=== PATIENT | male | born 1955 | race Caucasian/White ===

== ENCOUNTER 2024-05-05 13:07 | Inpatient (IN) ==
[2024-05-05] MEDS: SODIUM CHLORIDE 0.9% 1,000 ML IV ONE ×3 (13:46→18:07)
[2024-05-05 14:01] LABS: Hematocrit (blood only) 38.7 % (42.0-52.0); Hemoglobin 13.3 g/dl (14.0-18.0); Mean Corpuscular Hemoglobin 31.4 pg (25.0-34.0); Mean Corpuscular Hgb Conc 34.4 g/dL (32.0-36.0); Mean Corpuscular Volume 91.3 fL (80.0-100.0); Mean Platelet Volume 10.6 fL (9.4-12.4); Platelet Count 251 K/uL (130-400); RDW Coefficient of Variation 13.2 % (11.5-14.5); RDW Standard Deviation 43.8 fL (36.4-46.3); Red Blood Count 4.24 M/uL (4.70-6.10); White Blood Count 27.39 K/ul (4.8-10.8)
[2024-05-05 14:07] LABS: Appearance Urine Clear (Clear); Bacteria Urine Automated None Seen (None Seen); Bilirubin Urine Negative (Negative); Blood Urine Negative (Negative); Cast Urine Automated 0-2 /lpf (0-2); Color Urine Yellow; Epithelial Cell Urine Auto 0-2 /hpf (0-2); Glucose Urine UA Negative (Negative); Ketones Urine Negative (Negative); Leukocyte Esterase Urine Negative (Negative); Nitrite Urine Negative (Negative); Protein Urine 2+ (Negative); RBC Urine Automated 0-2 /hpf (0-2); Specific Gravity Urine 1.007 (1.000-1.030); Urobilinogen Urine Negative (Negative); WBC Urine Automated 0-5 /hpf (0-5); pH Urine 7.5 (4.5-7.5)
[2024-05-05] MEDS: cefTRIAXone SODIUM 2,000 MG/50 ML BAG IV STA (14:10)
[2024-05-05 14:18] LABS: Albumin Level 3.6 gm/dl (3.4-5.0); BUN Creatinine Ratio 14.7 (10-20); Bilirubin,Total 0.8 mg/dl (0.2-1.0); Calcium 9.4 mg/dl (8.6-10.3); Creatinine Clr Calc Pharmacy 62.1 ml/min; Globulin 3.6 gm/dl (2.5-4.0); Potassium 3.9 mmol/L (3.5-5.1); Total Protein 7.2 gm/dl (6.0-8.3)
[2024-05-05 14:22] LABS: Basophils # (auto) 0.09 K/uL (0.00-0.20); Basophils % (auto) 0.3 %; Eosinophils # (auto) 0.11 K/uL (0.00-0.50); Eosinophils % (auto) 0.4 %; Immature Granulocytes # (auto) 0.21 K/uL (0.01-0.20); Immature Granulocytes % (auto) 0.8 %; Lymphocytes # (auto) 3.21 K/uL (1.20-3.40); Lymphocytes % (auto) 11.7 %; Monocytes # (auto) 2.83 K/uL (0.11-0.59); Monocytes % (auto) 10.3 %; Neutrophils # (auto) 20.94 K/uL (1.40-6.50); Neutrophils % (auto) 76.5 %
--- NOTE | 2024-05-05 14:22 | XRay Report ---
EXAM: X-ray chest one-view portable CLINICAL HISTORY: Dyspnea PRIORS: None TECHNIQUE: Frontal view chest FINDINGS: The chest is well-expanded. No airspace consolidation, effusion or congestive changes. Heart size is top normal. No pneumothorax. Trachea is patent. Osseous structures demonstrate no acute abnormality. No radiopaque foreign body. IMPRESSION: No plain film evidence of an acute cardiopulmonary process. Electronically signed by Kayli Mo 05-05-2024 2:22 PM
[2024-05-05 14:25] LABS: Troponin I High Sensitivity 33.8 pg/ml (0-20)
[2024-05-05 14:28] LABS: Procalcitonin 0.21 ng/ml (0-0.5)
--- OUTSIDE RECORDS SUMMARY | 2024-05-05 14:30 | External Medical Summary | Summary of Care ---
Author Name Unknown Organization [facility] Address [address] [place] [address] Phone [phone] Care Team Providers Care Instructional Designer Name Role Phone Anthony Polanco MD Primary Care Provider [phone]- [phone] Reason for Visit * Reason Comments eRx-Medication Refill Encounter Details Date Type Department Care Team (Late st Contact Info) Description 12/11/2023 Refill [facility] [address] [place] [address] Anthony Polanco MD [address] [place] [address] Dyslipidemia, goal LDL below 100 Allergies No known active allergiesdocumented as of this encounter (statuses as of 12/11/2023) Medications Medication Sig Dispensed Refills Start Date End Date Status MULTIVITAMIN PO TABSIndications: Routine medical exam one pill each day 0 0 07/08/2009 Active FISH OIL 1200 MG PO CAPSIndications: Routine medical exam,Dyslipidemi a, goal LDL below 100 one pill by mouth daily 06/17/2014 Active fluticasone (FLONASE) 50 MCG/ACT nasal sprayIndications :Nonallergic rhinitis Administer 2 Sprays into each nostril daily. 48 g 3 02/26/2018 Active Misc Natural Products (GLUCOSAMINE CHOND DOUBLE STR) TABS Take by mouth. Active cetirizine (ZYRTEC) 10 MG Tablet Take 1 Tablet by mouth in the morning. Active Omeprazole 40 MG Oral Capsule Delayed Release (PriLOSEC) TAKE 1 CAPSULE BY MOUTH EVERY MORNING BEFORE BREAKFAST 90 Capsule 1 09/15/2023 Active Hyaluronic Acid 100 MG Oral Capsule Take 850 mg PE/day by mouth in the morning. Active Atorvastatin Calcium 10 MG Oral Tablet (Lipitor)Indicat ions:Dyslipidemi a, goal LDL below 100 TAKE 1 TABLET BY MOUTH EVERYDAY AT BEDTIME 90 Tablet 3 12/11/2023 Active Atorvastatin Calcium 10 MG Oral Tablet (Lipitor)Indicat ions:Dyslipidemi a, goal LDL below 100 TAKE 1 TABLET BY MOUTH EVERYDAY AT BEDTIME 90 Tablet 2 04/06/2023 4 Discontinued documented as of this encounter (statuses as of 12/11/2023) Active Problems Problem Noted Date Diagnosed Date H/O dysplastic nevus 09/20/2021 Overview: Mildly atypical nevus (L central mid back) Melanoma in situ of cheek 10/20/2020 Hx of nonmelanoma skin cancer 2019 Overview: squamous cell carcinoma (L central mid back 09/10), Renetta (central chest 04/13-Efudex), basal cell carcinoma (L scaphoid fossa-ear 11/2008) Hx of actinic keratosis 2019 Overview: actinic keratosis (Efudex 09/2019 full face, 04/2020, 01/2022, chest 05/13) 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: Lentigo Maligna (R cheek 04/09) Allergic rhinitis 08/21/2012 History of Lyme disease 11/29/2010 Dyslipidemia, goal LDL below 100 07/08/2009 documented as of this encounter (statuses as of 12/11/2023) Resolved Problems Problem Noted Date Diagnosed Date Resolved Date Family history of skin cancer 08/23/2017 12/11/2017 Personal history of skin cancer 08/23/2017 2019 Pain of left hand 07/28/2016 08/23/2017 Need for shingles vaccine 12/15/2014 Injury of toe on right foot 11/10/2014 08/23/2017 Need for hepatitis A vaccination 06/17/2014 06/26/2015 Foreign travel 12/11/2013 12/11/2017 Overweight (BMI 25.0-29.9) 05/24/2013 0 08/23/2017 Overview: bmi= 26.07 05/24/13 Screening for diabetes mellitus 05/24/2013 06/26/2015 Acute sinusitis 08/21/2012 06/26/2015 Special screening for malign ant neoplasm of prostate 06/21/2012 06/26/2015 Dyslipidemia, goal LDL below 100 07/18/2011 07/18/2011 Overweight (BMI 25.0-29.9) 06/21/2011 0 08/23/2017 Overview: BMI= 25.80 06/21/11 Lyme disease 11/30/2010 08/23/2017 Dermatitis 11/30/2010 06/26/2015 Other, multiple, and unspeci fied sites, insect bite, nonvenomous, without mention of infection(919.4) 11/30/2010 06/26/2015 OVERWEIGHT, BMI= 27.85 05/31/10 05/31/2010 08/23/2017 Myalgia and myositis 12/26/2009 016 Headache 12/26/2009 06/26/2015 Overview: ICD-10 update of inactive term Fever 12/26/2009 06/26/2015 Unspecified viral infection, in conditions classified elsewhere and of unspecified site 12/26/2009 06/26/2015 OVERWEIGHT, BMI= 27.89 07/08/09 07/08/2009 08/23/2017 Screening for prostate cancer 07/08/2009 08/23/2017 Dysfunction of eustachian tube 12/31/2007 06/02/2008 Headache 12/31/2007 06/02/2008 Overview: ICD-10 update of inactive term Acute URI 12/31/2007 06/02/2008 Acute sinusitis 12/31/2007 06/02/2008 Allergic rhinitis 12/31/2007 06/21/2012 ADVANCE DIRECTIVE INFORMATION 04/21/2006 07/28/2016 Overview: Yes, Patient instructed to provide copy of advance directive for provider to review and to be scanned into Electronic Medical Record BENIGN RADHAMES SKIN EAR 11/16/2005 06/26/19 16 Screening for prostate cancer 05/04/2005 07/30/2008 Overview: Resolved per Screening Diagnosis Protocol #6 Special screening for malign ant neoplasms, colon 05/04/2005 07/30/2008 Overview: Resolved per Screening Diagnosis Protocol #6 Need for influenza vaccination 03/25/2003 06/26/2015 SEBORRHEIC KERATOSIS, LEFT RELIGION 06/14/2002 06/26/2015 Dyslipidemia, goal to be determined 03/13/2002 07/08/2009 Need for prophylactic vaccin ation and inoculation against viral disease 03/13/20022003 Overview: ICD-10 update of inactive term ROUTINE MEDICAL EXAM 03/09/2001 016 Actinic keratosis 10/29/1998 06/26/2015 documented as of this encounter (statuses as of 12/11/2023) Immunizations Name Administration Dates Next Due COVID-19 mRNA, LNP-s, No Pre serve, 2-Dose Series (Moderna) 03/04/2022,03/30/2021,07/31/2020,07/03 HEP A - Hepatitis A (Adult > 18 yrs) 07/17/2014, 12/26/2013 Pneumococcal Conjugate Vacc, 13 Valent (Prevnar) 10/18/2019 Pneumococcal Polysaccharide PPV23 (Pneumovax) 10/20/2020 Seasonal Influenza, PF, 6 M & above, IM , (FluLaval or Fluzone) 01/30/2020,01/03/2019,02/26/2018 Seasonal Influenza, Quadriva lent Hd (Fluzone Hd) 04/07/2023,02/11/2021 Seasonal Influenza, Quadriva lent, No Preserve, IM 02/02/2017 Seasonal Influenza, Split, I IV3, With Preserve, Inj 03/05/2016,03/22/2015,02/19/2014,02/25,05/09/2012,06/21/2011,04/05/2010 ,06/02/2008,04/24/2007,04/21/2006 Seasonal Influenza, Trivalen t, Adjuvanted, 65+ yrs 03/04/2022 TD, Preservative Free 10/03/2018 TDAP, Age 7 and older, IM (Adacel) 12/31/2007 Typhoid Vaccine Oral (Vivotif) 12/30/2013 Varicella Zoster Vaccine (Adult) 12/17/2014 Zoster Vaccine Recombinant (Shingrix) 04/18/2018 ,11/01/2017 documented as of this encounter Social History Tobacco Use Types Packs/Day Years Used Date Smoking Tobacco: Never Smokeless Tobacco: Never Alcohol Use Standard Drinks/Week Comments Yes 0 (1 standard drink = 0.6 oz pure alcohol) 4-5 beers on weekend, glass of wine 3 x per week PHQ-2 Answer Date Recorded PHQ Adult Total Score 0 10/24/2022 Hunger Vital Sign Answer Date Recorded Within the past 12 months, y ou worried that your food would run out before you got the money to buy more. Never true 10/25/19 23 Within the past 12 months, t he food you bought just didn't last and you didn't have money to get more. Never true 10/24/2022 Utilities Answer Date Recorded Do you have trouble paying y our heating, water, or electric bill? (Adult - for ages 18 years and over) Not on file 11/07/2023 Is your family able to pay t he heat, water, or electric bill? (Household - for ages 0-17 years) Not on file 11/07/2023 Does your family have access to good internet? (Household - for ages 0-17 years) Not on file 11/07/2023 Social Connections Answer Date Recorded How often do you feel lonely or isolated from those around you? (Adult - for ages 18 years and over) Not on file 11/07/2023 Sex and Gender Information Value Date Recorded Sex Assigned at Male 10/03/2018 7:30 AM EDT Gender Identity Male 10/03/2018 7:30 AM EDT Sexual Orientation Straight 10/03/2018 7: 30 AM EDT Job Start Date Occupation Industry Not on file Not on file Not on file documented as of this encounter Miscellaneous Notes * Telephone Encounter - Chely Ramesh, [facility] - 12/11/2023 12:17 PM EDT Signed Prescriptions: Disp Refills Atorvastatin Calcium 10 MG Oral Tablet (Li*90 Tab*3 Sig: TAKE 1 TABLET BY MOUTH EVERYDAY AT BEDTIMEAuthorizing Provider: ANTHONY POLANCO User: CHELY RAMESH documented in this encounter Plan of Treatment Upcoming Encounters Date Type Department Care Team (Late st Contact Info) Description 03/28/2024 11:20 AM EST Office Visit Dermatology, [place] [address] [place] [address] Audelia Schulz PA-C [address] [place] [address] [place] [id number] 10/28/2024 1:20 PM EDT Office Visit [place] [address] [place] [facility] [place] [id number] Anthony Polanco MD [address], [place] [id number] Scheduled Procedures Name Priority Associated Diagnoses Date/Ti me COLONOSCOPY FLEXIBLE PROXIMA L DIAGNOSTIC Recall Encounter for screening colonoscopy Health Maintenance Due Date Last Done Comments Cologuard 09/27/1999 Fecal Occult Blood Test 09/27/1999 03/13/1997 Sigmoidoscopy 09/27/1999 COVID-19 Vaccine ( season) 2023 04/27/2023, 03/04/2022, 03/30/2021, Additional history exists Depression Screening 10/25/2023 10/24/2022, 12/16/19 15 Influenza Vaccine (FLU shot) (#1) 2024 04/07/2023, 03/04/2022, 02/11/2021, Additional history exists Colonoscopy 09/03/2025 09/04/2015, 08/20, 08/08/2005 Colorectal Cancer Screening 09/03/2025 Diabetes Screening 10/25/2026 10/26/2023, 0 10/24/2022, 10/21/2021, Additional history exists DTaP,Tdap,and Td Vaccines (3 - Td or Tdap) 10/03/2028 10/03/2018, 12/31/2007, 05/22/1994 Lipid Panel 10/25/2028 10/26/2023, 06/09/2022, 10/21/2021, Additional history exists Zoster Vaccines Completed 04/18/2018, 10/20, 12/17/2014 Pneumococcal Vaccine: 65+ Years Completed 10/20/2020, 10/18/2019 HPV (Gardasil) Vaccine Aged Out No lo nger eligible based on patient's age to complete this topic Hepatitis B Vaccine Aged Out No longe r eligible based on patient's age to complete this topic MENINGOCOCCAL (MENACTRA/MENVEO) Aged Out No longer eligible based on patient's age to complete this topic documented as of this encounter Medical Devices Not on filedocumented as of this encounter Visit Diagnoses Diagnosis Dyslipidemia, goal LDL below 100 Other and unspecified hyperlipidemia documented in this encounter Care Teams Instructional Designer Relationship Specialty Start Date End Date Anthony Polanco MD [address] [place] [address] PCP - General Family Medicine 09/06/18 documented as of this encounter
--- OUTSIDE RECORDS SUMMARY | 2024-05-05 14:30 | External Medical Summary | Summary of Care ---
Author Name Unknown Organization [facility] Address [address] [place] [address] Phone [phone] Care Team Providers Care Hog Man Name Role Phone Anthony Polanco MD Primary Care Provider +1- [phone] Reason for Visit * Reason Onset Date Comments Medication Refill 12/26/2023 Encounter Details Date Type Department Care Team (Late st Contact Info) Description 12/26/2023 Refill [facility] [address] [place] [address] Anthony Polanco MD [address] [place] [address] Allergies No known active allergiesdocumented as of this encounter (statuses as of 12/26/2023) Medications Medication Sig Dispensed Refills Start Date [...] Tablet by mouth in the morning. Active Hyaluronic Acid 100 MG Oral Capsule Take 850 mg PE/day by mouth in the morning. Active Atorvastatin Calcium 10 MG Oral Tablet (Lipitor)Indicat ions:Dyslipidemi a, goal LDL below 100 TAKE 1 TABLET BY MOUTH EVERYDAY AT BEDTIME 90 Tablet 3 12/11/2023 Active Omeprazole 40 MG Oral Capsule Delayed Release (PriLOSEC) Take 1 Capsule by mouth in the morning. 90 Capsule 3 12/26/2023 Active Omeprazole 40 MG Oral Capsule Delayed Release (PriLOSEC) TAKE 1 CAPSULE BY MOUTH EVERY MORNING BEFORE BREAKFAST 90 Capsule 1 09/15/2023 12/26/2023 Discontinue d(Refill) documented as of this encounter (statuses as of 12/26/2023) Active Problems Problem Noted Date Diagnosed Date [...] as of this encounter (statuses as of 12/26/2023) Resolved Problems Problem Noted Date Diagnosed Date [...] influenza vaccination 03/25/2003 06/26/2015 SEBORRHEIC KERATOSIS, LEFT ANABAPTISM 06/14/2002 06/26/2015 Dyslipidemia, goal to be determined 03/13/2002 07/08/2009 Need for prophylactic vaccin ation and inoculation against viral disease 03/13/20022003 Overview: ICD-10 update of inactive term ROUTINE MEDICAL EXAM 03/09/2001 016 Actinic keratosis 10/29/1998 06/26/2015 documented as of this encounter (statuses as of 12/26/2023) Immunizations Name Administration Dates Next Due COVID-19 [...] encounter Miscellaneous Notes * Telephone Encounter - Anthony Polanco MD - 12/26/2023 1:46 PM EDTSigned Prescriptions: Disp Refills Omeprazole 40 MG Oral Capsule Delayed Rele*90 Cap*3 Sig: Take 1 Capsule by mouth in the morning.Authorizing Provider: ANTHONY POLANCO * Telephone Encounter - Dale Ray OSA - 12/26/2023 1:20 PM EDT Did you pend patient's preferred pharmacy and medication before forwarding?yes Pharmacy: [facility] [id number] [place] [address] Pending Prescriptions: Disp Refills Omeprazole 40 MG Oral Capsule Delayed Rel*90 Cap*1 Sig: Take 1 Capsule by mouth in the morning. Last Visit: 10/26/2023 (in office), Visit date not found (telemedicine) Next Visit: 10/28/2024 If no future appointments scheduled, and last appointment is greater than a year ago, please schedule patient for a follow-up appointment Last date the medication was ordered: [id number] Is this request for a controlled substance?No Urine Drug Screen:No results found for this or any previous visit. Patient Phone Numbers Labs: Lab Results Component Value Date/Time CREAT 0.9 10/26/2023 02:11 PM CREAT 0.9 10/03/2019 09:26 AM POTASSIUM 4.1 10/26/2023 02:11 PM POTASSIUM 4.8 10/03/2019 09:26 AM LDLCALC 97 10/26/2023 02:11 PM LDLCALC 95 10/03/2019 09:26 AM LDLDIRECT NOT APPLICABLE 10/03/2019 09:26 AM ALT 24 10/24/2022 01:42 PM ALT 21 10/03/2019 09:26 AM documented in this encounter Plan of Treatment Upcoming Encounters Date Type Department Care Team (Late st Contact Info) Description 03/28/2024 11:20 AM EST Office Visit Dermatology, [place] [address] [facility] [place] [address] Audelia Schulz PA-C [address] [place] [address] [place] [id number] 10/28/2024 1:20 PM EDT Office Visit [facility] [place] [address] [facility] [phone] Anthony Polanco MD [address] [place] [facility] [place] [address] Scheduled Procedures Name Priority Associated Diagnoses Date/Ti [...] Not on filedocumented as of this encounter Care Teams Hog Man Relationship Specialty Start Date End Date Anthony Polanco MD [address] [place] [address] PCP - General Family Medicine 09/06/18 documented as of this encounter
--- NOTE | 2024-05-05 14:32 | Emergency Department Note ---
Impression & Plan Sepsis, Atrial flutter with rapid ventricular response, Lyme disease ED Provider Note NAME: YAMILE GALARZA AGE: 68 SEX: M : 1955 ARRIVES VIA: Walk-In INFORMANT: Patient ED PROVIDER(S): Gian Christopher DO CHIEF COMPLAINT: Shaking chills HPI: Patient is a 68-year-old male who presents to the ER for initially upper respiratory symptoms which started around Thanksgiving. The symptoms have improved. He notes that at that time he was having shortness of breath and congestion. He was on a Z-Lazaro and steroids. He finished the steroids in early April. Her last several days he has been complaining of bilateral lower back pain. He does have lower abdominal pain associated with this. No dysuria, urgency, or frequency. He admits to a very faint headache. No change or loss of vision. No other exacerbating or remitting factors. He admits that he does live in the [facility]. ADDITIONAL HISTORY OBTAINED: Per HPI Chronic Medical/Social Conditions Affecting Care: Per HPI PAST MEDICAL HISTORY:See Below PAST SURGICAL HISTORY:See Below FAMILY HISTORY:See Below SOCIAL HISTORY:See Below HOME MEDICATIONS:See Below ALLERGIES:See Below VITALS:See Below PHYSICAL EXAMINATION: GENERAL: Sitting up in bed, alert, ill-appearing, shaking, mild distress EYE EXAM: normal conjunctiva. PERRL and EOM's grossly intact. OROPHARYNX: no exudate, no erythema, lips, buccal mucosa, and tongue normal and mucous membranes are moist NECK: supple, no nuchal rigidity, no adenopathy, non-tender LUNGS: Clear to auscultation. Normal chest wall mechanics HEART: no murmurs, S1 normal and S2 normal ABDOMEN: abdomen soft, non-tender, normo-active bowel sounds, no masses, no rebound or guarding. BACK: Back is symmetrical on inspection and there is no deformity, no midline tenderness, no CVA tenderness. UPPER EXTREMITIES: upper extremities are grossly normal. LOWER EXTREMITIES: No pitting edema. NEURO EXAM: Normal sensorium, cranial nerves II-XII grossly intact, normal speech, no gross weakness of arms, no gross weakness of legs. MEDICAL DECISION MAKING: Patient is a 68-year-old male who presents ER for the above-stated complaint. IV was established and blood work was obtained. Labs show a leukocytosis of 27,000. No significant anemia. BMP was fairly unremarkable. Troponin was elevated at 33 likely secondary to the atrial flutter with RVR. Lipase was normal. Pro-Eddie 0.21. UA was clean. CT abdomen pelvis was obtained and suggested pyelonephritis however in light of a negative UA favor that this is likely not the case. Lyme was positive including IgG and IgM. Patient was covered with 2 g Rocephin. Viral panel was otherwise negative. He was given 2 L of IV fluids. He was updated bedside. After the 2 L he was given 1 dose of IV Lopressor. Heart rate trended down slightly to the 120s. Will hold on any additional Lopressor at this time with a heart rate of 120 and clear sepsis. Case was discussed with the hospitalist and patient was admitted for further workup. Consults/Care Managements Discussions: Per [facility] Triage Nursing notes reviewed. Limited review of prior medical records performed Vital Signs: reviewed and remarkable for tachycardic Differential diagnosis: Differential diagnosis includes etiologies such as sepsis, UTI, pneumonia, metabolic, electrolyte abnormalities, cardiac sources, intracerebral event, toxicologic, neurological, as well as others were entertained. ER treatment provided: See below Diagnostics interpreted by me include EKG and cardiac monitoring as listed below: -Cardiac Monitoring: An order was placed for continuous cardiac monitoring. The monitor shows a rate of 134 with AFIB rhythm. -ECG: A-flutter rate of 132 Normal axis No PVCs QTc 468 -Laboratory studies:Interpreted by me as stated above in MDM and shown below. Imaging studies: Xrays: As interpreted by me: Portable AP upright 1 view of the chest shows no focal infiltrate CTs show: CT of the pelvis per radiology showed the above findings Procedures: None Critical Care: I have personally spent 35 minutes of critical care time in the direct management of this patient. This includes bedside care, interpretation of diagnostic studies, and testing, discussion with consultants, patient, and family members, and other required patient management activities. This 35 minutes is in excess of all separately billable procedures. Past Med/Surg History Problem List (Updated 05/05/24 @ 17:45 by Gian Christopher DO) Sepsis (Acute) Nephrolithiasis Lyme disease (Acute) Atrial flutter with rapid ventricular response (Acute) Sepsis Pyelonephritis Hyperlipidemia Dyspnea on exertion Lateral epicondylitis of right elbow Medical History (Updated 05/05/24 @ 17:45 by Gian Christopher DO) Family history of coronary artery disease GERD (gastroesophageal reflux disease) Melanoma s/p excision from face BCC (basal cell carcinoma of skin) removal from ear Environmental allergies History of asthma as child Surgical History History of arthroscopy RT KNEE Hx of vasectomy History of colonoscopy [place] teeth removed Family History Other No significant family history Social History Smoking Status: Never smoker Second Hand Exposure: Yes ( A CHILD); Do You Dip or Chew Tobacco: No; Hx Alcohol Use: Yes Alcohol type: beer, wine and hard liquor Alcohol Intake Frequency: 4 or More x per/Week Hx Substance Use: No Preferred Language: Maltese Consumer Insights Specialist Required: No Beliefs That Will Affect Care: None Current Living Situation: Spouse Feels Safe at Home: Yes Assistive Devices: Glasses Allergies Allergies Allergy/AdvReac Type Severity Reaction Status Date / Time No Known Allergies Allergy Unverified 10/05/23 09:01 Home Meds Home Medications Medication Instructions Recorded Confirmed atorvastatin 10 mg tablet 10 mg PO HS 11/05/19 05/05/24 glucosamine sulf dipot 1 cap PO DAILY 11/05/19 05/05/24 chlr,msm,chond 550 mg-C 30 mg-omari 1 mg capsule (Glucosamine Chondroitin) multivitamin 1 tab PO DAILY 11/05/19 05/05/24 omega 7-kre-esb-fish oil 1,000 mg 1 cap PO DAILY 11/05/19 05/05/24 (120 mg-180 mg) capsule (Fish Oil) omeprazole 40 mg capsule,delayed 40 mg PO DAILY 04/22/21 05/05/24 release sodium hyaluronate 1 tab PO DAILY 05/05/24 05/05/24 Results & Data (ED) Vital Signs Vital Signs - 24 hr 05/05/24 13:10 05/05/24 13:20 05/05/24 13:32 Temperature 36.5 C Temperature Source Oral Pulse Rate 98 H 130 H 131 H Pulse Rate [Apical] Pulse Rhythm Regular Pulse Rhythm [Apical] Pulse Strength [Apical] Respiratory Rate 18 34 H Respiratory Effort / Characteristics Non-Labored Spontaneous Respiratory Depth Normal Blood Pressure 147/101 H Blood Pressure [Right Arm] Blood Pressure Mean 116 Blood Pressure Mean [Right Arm] Blood Pressure Position Sitting Pulse Oximetry 100 98 Oxygen Delivery Method Room Air Room Air Sepsis Recent Fever Within 48 Hours No Sepsis New/Unexplained Change in Mental Status N/A Sepsis Action Taken by Nursing No Action Required 05/05/24 14:12 05/05/24 14:44 05/05/24 15:16 Temperature 37.7 C H Temperature Source Oral Pulse Rate 139 H Pulse Rate [Apical] 124 H 130 H Pulse Rhythm Pulse Rhythm [Apical] Regular Pulse Strength [Apical] Normal Respiratory Rate 20 24 18 Respiratory Effort / Characteristics Spontaneous Labored Respiratory Depth Normal Blood Pressure Blood Pressure [Right Arm] 134/93 110/80 Blood Pressure Mean Blood Pressure Mean [Right Arm] 106 90 Blood Pressure Position Pulse Oximetry 98 97 93 Oxygen Delivery Method Room Air Room Air Sepsis Recent Fever Within 48 Hours Sepsis New/Unexplained Change in Mental Status Sepsis Action Taken by Nursing 05/05/24 15:22 05/05/24 15:24 Temperature 39.3 C H Temperature Source Oral Pulse Rate 135 H Pulse Rate [Apical] Pulse Rhythm Pulse Rhythm [Apical] Pulse Strength [Apical] Respiratory Rate Respiratory Effort / Characteristics Respiratory Depth Blood Pressure 110/80 Blood Pressure [Right Arm] Blood Pressure Mean Blood Pressure Mean [Right Arm] Blood Pressure Position Pulse Oximetry Oxygen Delivery Method Sepsis Recent Fever Within 48 Hours Sepsis New/Unexplained Change in Mental Status Sepsis Action Taken by Nursing Laboratory Data 05/05/24 13:34 05/05/24 13:34 Lab Results 05/05/24 05/05/24 05/05/24 Range/Units 13:34 13:47 15:30 WBC 27.39 H (4.8-10.8) K/ul RBC 4.24 L (4.70-6.10) M/uL Hgb 13.3 L (14.0-18.0) g/dl Hct 38.7 L (42.0-52.0) % MCV 91.3 (80.0-100.0) fL MCH 31.4 (25.0-34.0) pg MCHC 34.4 (32.0-36.0) g/dL RDW Std Deviation 43.8 (36.4-46.3) fL RDW Coeff of Gary 13.2 (11.5-14.5) % Plt Count 251 (130-400) K/uL MPV 10.6 (9.4-12.4) fL Immature Gran % (Auto) 0.8 % Neut % (Auto) 76.5 % Lymph % (Auto) 11.7 % [place] % (Auto) 10.3 % Eos % (Auto) 0.4 % Baso % (Auto) 0.3 % Neut # (Auto) 20.94 H (1.40-6.50) K/uL Lymph # (Auto) 3.21 (1.20-3.40) K/uL [place] # (Auto) 2.83 H (0.11-0.59) K/uL Eos # (Auto) 0.11 (0.00-0.50) K/uL Baso # (Auto) 0.09 (0.00-0.20) K/uL Immature Gran # (Auto) 0.21 H (0.01-0.20) K/uL Sodium 135 L (136-145) mmol/L Potassium 3.9 (3.5-5.1) mmol/L Chloride 100 (98-107) mmol/L Carbon Dioxide 27 (21-32) mmol/L Anion Gap 8 (3-11) BUN 17 (6-23) mg/dl Creatinine 1.16 (0.6-1.4) mg/dl Est Cr Clr Drug Dosing 62.1 ml/min eGFR 68.18 BUN/Creatinine Ratio 14.7 (10-20) Glucose 127 H (70-99(Fasting)) mg/dl Lactate 3.3 H* 0.7 (0.4-2.0) mmol/L Calcium 9.4 (8.6-10.3) mg/dl Total Bilirubin 0.8 (0.2-1.0) mg/dl AST 25 (13-39) U/L ALT 44 (7-52) U/L Alkaline Phosphatase 110 H (34-104) U/L Troponin I High Sens 33.8 H (0-20) pg/ml Total Protein 7.2 (6.0-8.3) gm/dl Albumin 3.6 (3.4-5.0) gm/dl Globulin 3.6 (2.5-4.0) gm/dl Albumin/Globulin Ratio 1.0 (0.9-2) Lipase 28 (11-82) U/L Procalcitonin 0.21 (0-0.5) ng/ml Urine Color Yellow Urine Appearance Clear (Clear) Urine pH 7.5 (4.5-7.5) Ur Specific [place] 1.007 (1.000-1.030) Urine Protein 2+ H (Negative) Urine Glucose (UA) Negative (Negative) Urine Ketones Negative (Negative) Urine Blood Negative (Negative) Urine Nitrite Negative (Negative) Urine Bilirubin Negative (Negative) Urine Urobilinogen Negative (Negative) Ur Leukocyte Esterase Negative (Negative) Urine WBC (Auto) 0-5 (0-5) /hpf Urine RBC (Auto) 0-2 (0-2) /hpf U Hyaline Cast (Auto) 0-2 (0-2) /lpf U Epithel Cells (Auto) 0-2 (0-2) /hpf Urine Bacteria (Auto) None Seen (None Seen) Adenovirus (PCR) Not Detected (NotDetected) Anaplasma Smear See Comment Babesia Smear See Comment B. pertussis DNA (PCR) Not Detected (NotDetected) B.parapertussis DNA PCR Not Detected (NotDetected) Lyme Disease Screen Positive H (Negative) Lyme Tier 2 IgG Confirm Positive H (Negative) Lyme Tier 2 IgM Confirm Positive H (Negative) C. pneumoniae DNA (PCR) Not Detected (NotDetected) Coronavirus OC43 (PCR) Not Detected (NotDetected) Coronavirus HKU1 (PCR) Not Detected (NotDetected) Coronavirus 229E (PCR) Not Detected (NotDetected) SARS-CoV-2 (PCR) Not Detected (NotDetected) Coronavirus NL63 (PCR) Not Detected (NotDetected) Human Metapneumovir PCR Not Detected (NotDetected) Influenza Type A (PCR) Not Detected (NotDetected) Influenza Type B (PCR) Not Detected (NotDetected) M. pneumoniae (PCR) Not Detected (NotDetected) Parainfluenza 1 (PCR) Not Detected (NotDetected) Parainfluenza 2 (PCR) Not Detected (NotDetected) Parainfluenza 3 (PCR) Not Detected (NotDetected) Parainfluenza 4 (PCR) Not Detected (NotDetected) RSV (PCR) Not Detected (NotDetected) Entero/Rhino (PCR) Not Detected (NotDetected) Administered Medications Heparin Sodium/Dextrose (Heparin Sodium/Dextrose) 25,000 units in 500 mls @ 27 mls/hr IV .[id number] [facility]; Protocol Stop: 06/04/24 15:59 Last Admin: 05/05/24 16:39 Dose: 1,350 units/hr, 27 mls/hr Documented By: HERBIE Co-signed By: KRISTA Discontinued Medications Acetaminophen (Acetaminophen 325 Mg Tab) 650 mg PO NOW STA Stop: 05/05/24 15:44 Last Admin: 05/05/24 15:57 Dose: 650 mg Documented By: HERBIE Sodium Chloride (Nss) 1,000 mls @ 999 mls/hr IV .Q1H1M ONE Stop: 05/05/24 14:40 Last Infusion: 05/05/24 15:05 Dose: Infused Documented By: Admin: 05/05/24 13:46 Dose: 999 mls/hr Documented By: KEVYN Ceftriaxone Sodium (Rocephin) 2,000 mg in 50 mls @ 100 mls/hr IV NOW STA Stop: 05/05/24 14:10 Last Infusion: 05/05/24 15:05 Dose: Infused Documented By: Admin: 05/05/24 14:10 Dose: 100 mls/hr Documented By: YASMINE Sodium Chloride (Nss) 1,000 mls @ 999 mls/hr IV .Q1H1M ONE Stop: 05/05/24 16:35 Last Admin: 05/05/24 16:39 Dose: 999 mls/hr Documented By: HERBIE Ioversol (Optiray 320 100ml) 94 ml IV ONCE ONE Stop: 05/05/24 14:35 Last Admin: 05/05/24 14:35 Dose: 94 ml Documented By: RUDDY Metoprolol Tartrate (Metoprolol Tartrate 1 Mg/Ml Vial) 5 mg IV NOW STA Stop: 05/05/24 15:07 Last Admin: 05/05/24 15:22 Dose: 5 mg Documented By: HERBIE Imaging Data Radiologist's Impression: Abdomen/Pelvis CT 05/05/24 13:39 EXAMINATION: Abdomen and pelvis CT with CLINICAL HISTORY: Back pain, abdominal pain PRIORS: None TECHNIQUE: Contiguous axial images were obtained through the abdomen and pelvis with the use of intravenous contrast. Sagittal and coronal reformations are supplied. FINDINGS: Mild atelectasis in the lung bases. The liver is enlarged measuring 19.5 cm. The gallbladder, pancreas, spleen, adrenals, aorta and IVC are morphologically unremarkable. Moderate atherosclerotic disease of the abdominal aorta. A large nonobstructing left renal calculus is present in the calyces, measuring up to 11 mm. Small right renal cyst is present. No obstructing renal calculus. Enhancement of the kidneys is patchy and heterogeneous, right greater than left. No perinephric stranding. Urinary bladder distends normally. Prostate is moderately enlarged. No retroperitoneal adenopathy. A large amount of formed stool is present throughout the colon. No dilated loops of bowel or bowel obstruction. No ascites or extraluminal gas. Appendix is a normal appearance. No inguinal adenopathy. In bone windows, moderate osseous demineralization noted. Moderate to advanced degenerative change at L5-S1. No high-grade compression fracture. Very subtle compression deformity of the T12 vertebral body of less than 10% with the nonacute appearance. No retropulsed fragments. IMPRESSION: 1. Subtle bilateral heterogeneous striated nephrograms, right greater than left, favoring mild bilateral pyelonephritis with no perinephric stranding or acute complication at this time. Please correlate with urinalysis as appropriate. 2. Left nonobstructing renal calculus measuring 11.5 mm. 3. Moderately enlarged prostate with no urinary bladder wall thickening or perivesicular enhancement. 4. Large amount of formed stool throughout the colon with no dilated loops of bowel. 5. Hepatomegaly. 6. Osseous demineralization with degenerative change at L5-S1. Subtle compression deformity of the T12 vertebral body with a nonacute appearance and no retropulsed fragments. ACT 112: Positive. There are findings on this examination that require communication between the performing entity and the patient following Patient Test Result Information Act ([place] ACT 112) guidelines. Electronically signed by Kayli Mo 05-05-2024 3:00 PM Chest X-Ray 05/05/24 13:40 EXAM: X-ray chest one-view portable CLINICAL HISTORY: Dyspnea PRIORS: None TECHNIQUE: Frontal view chest FINDINGS: The chest is well-expanded. No airspace consolidation, effusion or congestive changes. Heart size is top normal. No pneumothorax. Trachea is patent. Osseous structures demonstrate no acute abnormality. No radiopaque foreign body. IMPRESSION: No plain film evidence of an acute cardiopulmonary process. Electronically signed by Kayli Mo 05-05-2024 2:22 PM Discharge Plan Visit Data Chief Complaint: Illness Stated Complaint: BACK PAIN, HEADACHE, COLD SYMPTOMS ED Provider: Gian Christopher Discharge Problem: Sepsis, Atrial flutter with rapid ventricular response, Lyme disease Discharge Problem: Sepsis Qualifiers: Sepsis type: sepsis due to unspecified organism Sepsis acute organ dysfunction status: unspecified Qualified Code(s): A41.9 - Sepsis, unspecified organism
[2024-05-05] MEDS: OPTIRAY 320 100ml IV ONE (14:35)
[2024-05-05 14:50] LABS: Adenovirus PCR Not Detected (NotDetected); Bordetella parapertussis PCR Not Detected (NotDetected); Bordetella pertussis PCR Not Detected (NotDetected); Chlamydia pneumoniae PCR Not Detected (NotDetected); Coronavirus 229E PCR Not Detected (NotDetected); Coronavirus CoV-2 (COVID19)PCR Not Detected (NotDetected); Coronavirus HKU1 PCR Not Detected (NotDetected); Coronavirus NL63 PCR Not Detected (NotDetected); Coronavirus OC43PCR Not Detected (NotDetected); Human Metapneumovirus PCR Not Detected (NotDetected); Influenza A PCR Not Detected (NotDetected); Influenza B PCR Not Detected (NotDetected); Mycoplasma pneumoniae PCR Not Detected (NotDetected); Parainfluenza Virus 1 PCR Not Detected (NotDetected); Parainfluenza Virus 2 PCR Not Detected (NotDetected); Parainfluenza Virus 3 PCR Not Detected (NotDetected); Parainfluenza Virus 4 PCR Not Detected (NotDetected); Respiratory Syncytial VirusPCR Not Detected (NotDetected); Rhinovirus/Enterovirus PCR Not Detected (NotDetected)
[2024-05-05 14:53] LABS: Lyme Screen Rflx Confirmation Positive (Negative)
--- NOTE | 2024-05-05 15:00 | CT Scan Report ---
EXAMINATION: Abdomen and pelvis CT with CLINICAL HISTORY: Back pain, abdominal pain PRIORS: None TECHNIQUE: Contiguous axial images were obtained through the abdomen and pelvis with the use of intravenous contrast. Sagittal and coronal reformations are supplied. FINDINGS: Mild atelectasis in the lung bases. The liver is enlarged measuring 19.5 cm. The gallbladder, pancreas, spleen, adrenals, aorta and IVC are morphologically unremarkable. Moderate atherosclerotic disease of the abdominal aorta. A large nonobstructing left renal calculus is present in the calyces, measuring up to 11 mm. Small right renal cyst is present. No obstructing renal calculus. Enhancement of the kidneys is patchy and heterogeneous, right greater than left. No perinephric stranding. Urinary bladder distends normally. Prostate is moderately enlarged. No retroperitoneal adenopathy. A large amount of formed stool is present throughout the colon. No dilated loops of bowel or bowel obstruction. No ascites or extraluminal gas. Appendix is a normal appearance. No inguinal adenopathy. In bone windows, moderate osseous demineralization noted. Moderate to advanced degenerative change at L5-S1. No high-grade compression fracture. Very subtle compression deformity of the T12 vertebral body of less than 10% with the nonacute appearance. No retropulsed fragments. IMPRESSION: 1. Subtle bilateral heterogeneous striated nephrograms, right greater than left, favoring mild bilateral pyelonephritis with no perinephric stranding or acute complication at this time. Please correlate with urinalysis as appropriate. 2. Left nonobstructing renal calculus measuring 11.5 mm. 3. Moderately enlarged prostate with no urinary bladder wall thickening or perivesicular enhancement. 4. Large amount of formed stool throughout the colon with no dilated loops of bowel. 5. Hepatomegaly. 6. Osseous demineralization with degenerative change at L5-S1. Subtle compression deformity of the T12 vertebral body with a nonacute appearance and no retropulsed fragments. ACT 112: Positive. There are findings on this examination that require communication between the performing entity and the patient following Patient Test Result Information Act ([place] ACT 112) guidelines. Electronically signed by Kayli Mo 05-05-2024 3:00 PM
[2024-05-05] MEDS: METOPROLOL TARTRATE 1 MG/ML VIAL IV STA (15:22)
[2024-05-05 15:27] LABS: Lyme Ab IgG 2nd Tier Confirm Positive (Negative)
[2024-05-05 15:28] LABS: Lyme Ab IgM 2nd Tier Confirm Positive (Negative)
[2024-05-05] MEDS: ACETAMINOPHEN 325 MG TAB PO STA (15:57)
--- NOTE | 2024-05-05 16:05 | History & Physical Report ---
Date of Service May 05, 2024 Assessment & Plan (1) Sepsis: Plan: This is a 68-year-old male with PMH of dyslipidemia, allergic rhinitis and other medical problems listed below who presents to ED with ongoing chills and lower back pain and was found to meet sepsis criteria in setting of Lyme disease and pyelonephritis. Febrile at 39.3 C, HR 130s, WBC 27K Lactate 3.3 -> 0.7, procal WNL In setting of pyelo and lyme disease as discussed below Continue IV fluids Follow blood culture (2) Pyelonephritis: (3) Nephrolithiasis: Plan: Urinary urgency, dysuria UA unremarkable but CT abd/pelvis with bilateral heterogeneous striated nephrograms, R>L favoring bilateral pyelonephritis. Also with left nonobstructing renal calculus measuring 11.5 mm as well as moderately enlarged prostate Continue Rocephin Follow urine, blood cx Routine urology consult Bladder scan PRN (4) Lyme disease: Plan: Lyme IgG and IgM positive Continue Rocephin Continue empiric Doxy while waiting for anaplasma DNA to result (5) Constipation: Plan: CT abd/pelvis with large amount of formed stool throughout the colon with no dilated loops of bowel Senna HS, PRN miralax (6) Atrial flutter with rapid ventricular response: Plan: New onset, heart rate in the 130s in setting of infection Lopressor 25 mg p.o. every 8 hours 2D echo Repeat EKG in AM IV heparin for stroke ppx Routine cardiology consult (7) Hyperlipidemia: Plan: Continue statin (8) GERD (gastroesophageal reflux disease): Plan: Continue PPI DVT Ppx: IV heparin Code status: FULL PCP: Emelia Dispo: admitted to PCU Patient seen in collaboration with Dr. Vo. Please see addendum. I spent a total of 65 minutes coordinating, documenting, and providing care for this patient excluding time spent in the performance of separately billed services. History of Present Illness Chief Complaint: Chills, muscle aches Primary Care Provider: Job Kapoor MD This is a 68-year-old male with PMH of dyslipidemia, allergic rhinitis and other medical problems listed below who presents to ED with ongoing chills and lower back pain. Has been feeling fatigued with headache and SOB since around and was prescribed a Z-Lazaro, which he finished in early April. Did not feel much better. Went to [facility] in clinic and was started on a prednisone taper, which he completed last week. Continued to feel poorly over the past few days and then last night, patient developed lower back pain bilaterally. Also with lower abdominal discomfort. + Fever and chills since yesterday. Lightheaded with positional changes. + Chest pain and palpitations, worse with exertion. No nausea or vomiting. No rash. Also endorses urinary frequency and dysuria as well as significant weakness and muscle aches with standing. No hematuria. Has been constipated with infrequent bowel movements over the past few days. Decreased fluids over the past week since feeling poorly. No history of known arrhythmia. Drinks 2 mugs coffee / day. Typically has 1-2 drinks daily but has felt too poorly to drink over past 2 weeks. Endorses time in the [place] a few weeks ago when it was warmer. Allergies Allergy/AdvReac Type Severity Reaction Status Date / Time No Known Allergies Allergy Unverified 10/05/23 09:01 Home Medications Medication Instructions Recorded Confirmed Type atorvastatin 10 mg tablet 10 mg PO HS 11/05/19 05/05/24 History glucosamine sulf dipot 1 cap PO DAILY 11/05/19 05/05/24 History chlr,msm,chond 550 mg-C 30 mg-omari 1 mg capsule (Glucosamine Chondroitin) multivitamin 1 tab PO DAILY 11/05/19 05/05/24 History omega 5-jct-bqq-fish oil 1,000 mg 1 cap PO DAILY 11/05/19 05/05/24 History (120 mg-180 mg) capsule (Fish Oil) omeprazole 40 mg capsule,delayed 40 mg PO DAILY 04/22/21 05/05/24 History release sodium hyaluronate 1 tab PO DAILY 05/05/24 05/05/24 History Past Med/Surg History Problem List (Updated 05/05/24 @ 17:52 by Michelle Alva PA-C) Constipation Sepsis (Acute) Nephrolithiasis Lyme disease (Acute) Atrial flutter with rapid ventricular response (Acute) Sepsis Pyelonephritis Hyperlipidemia Dyspnea on exertion Lateral epicondylitis of right elbow Medical History Family history of coronary artery disease GERD (gastroesophageal reflux disease) Melanoma s/p excision from face BCC (basal cell carcinoma of skin) removal from ear Environmental allergies History of asthma as child Surgical History History of arthroscopy RT KNEE Hx of vasectomy History of colonoscopy [place] teeth removed Family History Other No significant family history Social History Smoking Status: Never smoker Second Hand Exposure: Yes ( A CHILD); Do You Dip or Chew Tobacco: No; Hx Alcohol Use: Yes Alcohol type: beer, wine and hard liquor Alcohol Intake Frequency: 4 or More x per/Week Hx Substance Use: No Preferred Language: Icelandic Communication Ability: Effective Industrial Engineer Required: No Beliefs That Will Affect Care: None Current Living Situation: Spouse Other Information That Helps Us Care for You: No Feels Safe at Home: Yes Safety Concerns: Feels Safe At This Time Assistive Devices: Glasses Review of Systems Review of Systems: At least ten systems reviewed and negative except as noted in the HPI. Physical Exam Physical Exam: Please see Dr. Vo's addendum for physical exam. Results & Data Results & Data Vital Signs (Past 12 Hours) Vital Signs Temp Pulse Pulse Resp BP BP Pulse Ox 05/05/24 15:24 39.3 C H 05/05/24 15:22 135 H 110/80 05/05/24 15:16 139 H 18 93 05/05/24 14:44 37.7 C H 130 H 24 110/80 97 05/05/24 14:12 124 H 20 134/93 98 05/05/24 13:32 131 H 05/05/24 13:20 130 H 34 H 98 05/05/24 13:10 36.5 C 98 H 18 147/101 H 100 O2 Del Method 05/05/24 15:24 05/05/24 15:22 05/05/24 15:16 Room Air 05/05/24 14:44 05/05/24 14:12 Room Air 05/05/24 13:32 05/05/24 13:20 Room Air 05/05/24 13:10 Room Air Laboratory Results Short CBC 05/05/24 Range/Units 13:34 WBC 27.39 H (4.8-10.8) K/ul Hgb 13.3 L (14.0-18.0) g/dl Hct 38.7 L (42.0-52.0) % Plt Count 251 (130-400) K/uL BMP 05/05/24 13:34 Sodium 135 L Potassium 3.9 Chloride 100 Carbon Dioxide 27 BUN 17 Creatinine 1.16 Glucose 127 H Calcium 9.4 Liver Function 05/05/24 Range/Units 13:34 Total Bilirubin 0.8 (0.2-1.0) mg/dl AST 25 (13-39) U/L ALT 44 (7-52) U/L Alkaline Phosphatase 110 H (34-104) U/L Albumin 3.6 (3.4-5.0) gm/dl Urine 05/05/24 Range/Units 13:47 Urine Color Yellow Urine Appearance Clear (Clear) Urine pH 7.5 (4.5-7.5) Ur Specific [place] 1.007 (1.000-1.030) Urine Protein 2+ H (Negative) Urine Glucose (UA) Negative (Negative) Diagnostic Findings Abdomen/Pelvis CT 05/05/24 13:39 EXAMINATION: Abdomen and pelvis CT with CLINICAL HISTORY: Back pain, abdominal pain PRIORS: None TECHNIQUE: Contiguous axial images were obtained through the abdomen and pelvis with the use of intravenous contrast. Sagittal and coronal reformations are supplied. FINDINGS: Mild atelectasis in the lung bases. The liver is enlarged measuring 19.5 cm. The gallbladder, pancreas, spleen, adrenals, aorta and IVC are morphologically unremarkable. Moderate atherosclerotic disease of the abdominal aorta. A large nonobstructing left renal calculus is present in the calyces, measuring up to 11 mm. Small right renal cyst is present. No obstructing renal calculus. Enhancement of the kidneys is patchy and heterogeneous, right greater than left. No perinephric stranding. Urinary bladder distends normally. Prostate is moderately enlarged. No retroperitoneal adenopathy. A large amount of formed stool is present throughout the colon. No dilated loops of bowel or bowel obstruction. No ascites or extraluminal gas. Appendix is a normal appearance. No inguinal adenopathy. In bone windows, moderate osseous demineralization noted. Moderate to advanced degenerative change at L5-S1. No high-grade compression fracture. Very subtle compression deformity of the T12 vertebral body of less than 10% with the nonacute appearance. No retropulsed fragments. IMPRESSION: 1. Subtle bilateral heterogeneous striated nephrograms, right greater than left, favoring mild bilateral pyelonephritis with no perinephric stranding or acute complication at this time. Please correlate with urinalysis as appropriate. 2. Left nonobstructing renal calculus measuring 11.5 mm. 3. Moderately enlarged prostate with no urinary bladder wall thickening or perivesicular enhancement. 4. Large amount of formed stool throughout the colon with no dilated loops of bowel. 5. Hepatomegaly. 6. Osseous demineralization with degenerative change at L5-S1. Subtle compression deformity of the T12 vertebral body with a nonacute appearance and no retropulsed fragments. ACT 112: Positive. There are findings on this examination that require communication between the performing entity and the patient following Patient Test Result Information Act ([place] ACT 112) guidelines. Electronically signed by Kayli Mo 05-05-2024 3:00 PM Chest X-Ray 05/05/24 13:40 EXAM: X-ray chest one-view portable CLINICAL HISTORY: Dyspnea PRIORS: None TECHNIQUE: Frontal view chest FINDINGS: The chest is well-expanded. No airspace consolidation, effusion or congestive changes. Heart size is top normal. No pneumothorax. Trachea is patent. Osseous structures demonstrate no acute abnormality. No radiopaque foreign body. IMPRESSION: No plain film evidence of an acute cardiopulmonary process. Electronically signed by Kayli Mo 05-05-2024 2:22 PM Code Status & VTE Plan VTE Prophylaxis Plan VTE Prophylaxis will be ordered: Yes Supervising Physician Co-Signing Physician Notes Patient is a 68-year-old male with history of hyperlipidemia, GERD, BPH, alcohol use disorder and other medical problems presents with history of worsening back, leg pain, generalized weakness and fatigue associated with chills, headache and dyspnea on exertion. He was prescribed Z-Lazaro, steroid taper course as ou tpatient which did not improve his symptoms. He denies any tick bite, generalized rash but admits to have Lyme's disease in the past. He started to develop lower abdominal discomfort, flank discomfort associated with fever yesterday and has been dizzy. He also admits to have palpitations which worsen with exertion. He also had some dysuria but denies any hematuria. He drinks 1- 2 beers on most days. Please review HPI for complete details of presentation. I personally reviewed blood work and imaging studies. WBC elevated 27.3 9K, Sodium 135, glucose 127, lactic 3.3 repeat 0.7, initial troponin 33.8, repeat 16.7, alkaline phosphatase 110, normal procalcitonin. Normal lipase levels. Urinalysis within normal limits. BioFire negative. Lyme serology positive for Lyme's disease. Chest x-ray showed no acute process. CT abdomen showed findings suggestive of bilateral pyelonephritis, left nonobstructing renal calculus measuring 11.5 cm, enlarged prostate and findings suggestive of c onstipation and hepatomegaly. Also noted incidental compression deformity of T12 vertebral body. EKG showed atrial flutter with variable AV block, QTc 468. Physical Exam: Vitals signs as noted above General Appearance:Moderately built and nourished, no apparent distress Head: normocephalic, Atraumatic Eyes: normal inspection, EOMI Neck: supple, Trachea midline Respiratory/Chest: Normal breath sounds, CTA, No accessory muscle use Cardiovascular: Irregularly irregular, tachycardia, No murmur Abdomen/GI:Soft, Non tender, Bowel sounds present, no guarding or rigidity Extremities/Musculoskeletal:normal inspection, no edema Neurologic/Psych:AAOX3, grossly no focal neurological deficits Skin: normal color, warm Sepsis Secondary to Lyme's disease, complicated UTI Lactic acidosis Blood, urine culture pending Empirically on Rocephin, doxycycline Follow serology for tickborne illness IV fluids Atrial flutter RVR Troponin elevation likely demand ischemia secondary to above Started on IV heparin for anticoagulation Also started on scheduled metoprolol, IV Lopressor as needed Check resting echo Cardiology consulted Trend troponins Monitor and replete Eliquis as needed T12 compression deformity If persistent back pain, consider Ortho evaluation BPH Incidental finding Monitor for retention May benefit from adding Flomax eventually I personally interviewed and examined at bedside. Patient's care is coordinated with Michelle Avla PA-C. I have reviewed the advanced practitioner's documentation, and I agree with plan of care. Please refer to the documentation above for details of patient's presentation and for discussion of other issues. I spent a total [id number] coordinating, documenting, and providing care for this patient excluding time spent in the performance of separately billed services.
[2024-05-05] MEDS: HEPARIN SODIUM/DEXTROSE 25,000 UNITS/500 ML BAG IV SCH (16:39)
[2024-05-05] MEDS ORDERED: POLYETHYLENE (MIRALAX) 17 GM PACK PO PRN (17:42)
[2024-05-05] MEDS ORDERED: ONDANSETRON INJ 2 MG/ML 2 ML VIAL IV PRN (17:42)
[2024-05-05] MEDS: Heparin IV Adult Wt-Based Standard *NO* INITIAL Bolus Protocol IV SCH (18:00)
[2024-05-05] MEDS: POTASSIUM CHLORIDE CRTAB 20 MEQ TABCR PO ONE (18:07)
[2024-05-05] MEDS: MAGNESIUM SULFATE / D5W 1 GM/100 ML BAG IV ONE (18:07)
[2024-05-05 19:41] LABS: Magnesium 1.9 mg/dl (1.7-2.4)
[2024-05-05 19:48] LABS: Troponin I High Sensitivity 16.7 pg/ml (0-20)
[2024-05-05] MEDS: SENNA 8.6 MG TAB PO SCH (20:08)
[2024-05-05] MEDS: DOXYCYCLINE HYCLATE 100 MG CAP PO SCH (20:08)
[2024-05-05] MEDS: DOCUSATE SODIUM 100 MG CAP PO SCH (20:08)
[2024-05-05] MEDS: ATORVASTATIN 10 MG TAB PO SCH (20:09)
[2024-05-05] MEDS: METOPROLOL TARTRATE 25 MG TAB PO SCH (20:09)
[2024-05-05] MEDS: METOPROLOL TARTRATE 1 MG/ML VIAL IV PRN (22:45)
[2024-05-05 23:29] LABS: ANTI-Xa, UFH(UnfractionatedHep 0.26 IU/ml (0.3-0.7)
[2024-05-06] MEDS: ACETAMINOPHEN 325 MG TAB PO STA (00:35)
[2024-05-06] MEDS: dilTIAZem HCl 5 MG/ML 5 ML VIAL IV STA ×2 (00:36→02:32)
[2024-05-06] MEDS: NSS + 20MEQ KCL 20 MEQ/1,000 ML BAG IV ONE (00:47)
--- NOTE | 2024-05-06 06:08 | Electrocardiogram Report ---
Test Reason : Blood Pressure : */* mmHG Vent. Rate : 132 BPM Atrial Rate : 352 BPM P-R Int : * ms QRS Dur : 80 ms QT Int : 316 ms P-R-T Axes : 234 36 -46 degrees QTcB Int : 468 ms Atrial flutter with variable A-V block Possible Anterior infarct , age undetermined Abnormal ECG No previous ECGs available Confirmed by Timothy Willoughby ([id number]) on 05/06/2024 6:08:11 AM Referred By: Confirmed By: Timothy Willoughby
[2024-05-06 06:51] LABS: Hematocrit (blood only) 34.1 % (42.0-52.0); Hemoglobin 11.9 g/dl (14.0-18.0); Mean Corpuscular Hemoglobin 32.2 pg (25.0-34.0); Mean Corpuscular Hgb Conc 34.9 g/dL (32.0-36.0); Mean Corpuscular Volume 92.4 fL (80.0-100.0); Mean Platelet Volume 10.4 fL (9.4-12.4); Platelet Count 207 K/uL (130-400); RDW Coefficient of Variation 13.2 % (11.5-14.5); Red Blood Count 3.69 M/uL (4.70-6.10)
[2024-05-06 07:26] LABS: Albumin Level 2.9 gm/dl (3.4-5.0); BUN Creatinine Ratio 14.9 (10-20); Bilirubin,Total 0.6 mg/dl (0.2-1.0); Calcium 8.6 mg/dl (8.6-10.3); Creatinine Clr Calc Pharmacy 71.3 ml/min; Globulin 2.9 gm/dl (2.5-4.0); Magnesium 2.1 mg/dl (1.7-2.4); Potassium 4.1 mmol/L (3.5-5.1); Total Protein 5.8 gm/dl (6.0-8.3)
[2024-05-06 07:36] LABS: ANTI-Xa, UFH(UnfractionatedHep 0.38 IU/ml (0.3-0.7)
[2024-05-06] MEDS: FOLIC ACID 400 MCG TAB PO SCH (08:56)
[2024-05-06] MEDS: THIAMINE HCL 100 MG TAB PO SCH (08:56)
[2024-05-06] MEDS: MULTIVITAMIN TAB PO SCH (08:57)
[2024-05-06] MEDS: PANTOprazole 40 MG TAB PO SCH (08:57)
[2024-05-06] MEDS: ACETAMINOPHEN 325 MG TAB PO PRN (09:01)
--- NOTE | 2024-05-06 09:52 | Hospitalist Progress Note ---
Date of Service May 06, 2024 Assessment & Plan (1) Pyelonephritis: Plan: Clinically that is possible, especially that patient has evidence of flag for sepsis on admission, continue with IV ceftriaxone, awaiting blood cultures to finalize, will reviewed input by urology in regard to his left renal pelvis 11 mm stone. (2) Nephrolithiasis: Plan: Urinalysis was unremarkable, await input by urology, continue with IV antibiotic for now. Patient does not have any pain. (3) Lyme disease: Plan: Lyme IgG and IgM were positive, commit to ceftriaxone for now, upon discharge may consider total of 21 days of doxycycline if otherwise echocardiogram remains unremarkable. (4) Atrial flutter with rapid ventricular response: Plan: Clinically stable, continue with metoprolol. (5) Hyperlipidemia: Plan: Continue statin (6) GERD (gastroesophageal reflux disease): Plan: Continue PPI at home dose. Plan Follow-up with the result of the blood culture, monitor his response to treatment with IV antibiotic, reevaluate tomorrow with report of echocardiogram and input from cardiology and urology and hopefully we might be able to transition him to oral antibiotic in 24 to 48 hours. Admission and Anticipated Discharge Date Admission Date: May 05, 2024 Subjective Patient is a 68-year-old gentleman with history of hyperlipidemia who has been having the Lyme disease in the past, [place], patient initially started with 2 to 3 weeks of tiredness, at the suggestion of his friends, he completed a dose of Z-Lazaro and also steroid without any improvement, 3 days prior to this visit he started having bilateral lower flank pain and then because of overall condition he decided to check into the hospital. He was found to be positive for Lyme's disease both IgM and IgG, CT of the abdomen showed bilateral appearance of pyelonephritis with presence of an 11 mm kidney stone in the renal pelvis on the left side. He was flagged for sepsis and so patient was decided to be admitted, he had elevated troponin which lillie from 16 to 40, overnight his Tmax was 39.3. Patient was seen and examined, clinically stable, urology consultation was ordered by admitting physician, continue with IV antibiotic with ceftriaxone, I have added echocardiogram to his regimen of workup concerning slight troponin elevation to seek and find out if there is any evidence of myopericarditis. Physical Exam Physical Exam: VITALS: Reviewed. WEIGHT/BMI reviewed. GEN: Healthy appearing, well-developed, NAD. PSYCH: Good Judgment. AOx3. Normal memory, mood, and affect. CV: RRR, no m/r/g. LUNGS: CTAB, no w/r/c. ABD: Soft, NT/ND, NBS, no masses or organomegaly. Results & Data Results & Data Vital Signs (Past 12 Hours) Vital Signs Temp Pulse Pulse Resp BP BP Pulse Ox 05/06/24 09:22 132 H 134/69 05/06/24 07:15 36.7 C 88 19 134/69 98 05/06/24 03:35 36.9 C 86 18 114/74 94 05/06/24 01:54 112 H 118/73 05/05/24 23:00 116 H 126/86 05/05/24 22:45 116 H 132/88 05/05/24 22:27 37.6 C H 116 H 18 132/88 99 05/05/24 22:07 116 H O2 Del Method 05/06/24 09:22 05/06/24 07:15 Room Air 05/06/24 03:35 Room Air 05/06/24 01:54 05/05/24 23:00 05/05/24 22:45 05/05/24 22:27 Room Air 05/05/24 22:07 Laboratory Results Laboratory Results - last 24 hr 05/05/24 05/05/24 05/05/24 13:34 13:47 15:30 WBC 27.39 H RBC 4.24 L Hgb 13.3 L Hct 38.7 L MCV 91.3 MCH 31.4 MCHC 34.4 RDW Std Deviation 43.8 RDW Coeff of Gary 13.2 Plt Count 251 MPV 10.6 Immature Gran % (Auto) 0.8 Neut % (Auto) 76.5 Lymph % (Auto) 11.7 [place] % (Auto) 10.3 Eos % (Auto) 0.4 Baso % (Auto) 0.3 Neut # (Auto) 20.94 H Lymph # (Auto) 3.21 [place] # (Auto) 2.83 H Eos # (Auto) 0.11 Baso # (Auto) 0.09 Immature Gran # (Auto) 0.21 H Heparin Anti-Xa, Unfract Sodium 135 L Potassium 3.9 Chloride 100 Carbon Dioxide 27 Anion Gap 8 BUN 17 Creatinine 1.16 Est Cr Clr Drug Dosing 62.1 eGFR 68.18 BUN/Creatinine Ratio 14.7 Glucose 127 H Lactate 3.3 H* 0.7 Calcium 9.4 Magnesium Total Bilirubin 0.8 AST 25 ALT 44 Alkaline Phosphatase 110 H Troponin I High Sens 33.8 H Total Protein 7.2 Albumin 3.6 Globulin 3.6 Albumin/Globulin Ratio 1.0 Lipase 28 Procalcitonin 0.21 Urine Color Yellow Urine Appearance Clear Urine pH 7.5 Ur Specific [place] 1.007 Urine Protein 2+ H Urine Glucose (UA) Negative Urine Ketones Negative Urine Blood Negative Urine Nitrite Negative Urine Bilirubin Negative Urine Urobilinogen Negative Ur Leukocyte Esterase Negative Urine WBC (Auto) 0-5 Urine RBC (Auto) 0-2 U Hyaline Cast (Auto) 0-2 U Epithel Cells (Auto) 0-2 Urine Bacteria (Auto) None Seen Adenovirus (PCR) Not Detected Anaplasma Smear See Comment A. phagocytophilum DNA Pending Babesia Smear See Comment Babesia microti DNA PCR Pending B. pertussis DNA (PCR) Not Detected B.parapertussis DNA PCR Not Detected Lyme Disease Screen Positive H Lyme Tier 2 IgG Confirm Positive H Lyme Tier 2 IgM Confirm Positive H C. pneumoniae DNA (PCR) Not Detected Coronavirus OC43 (PCR) Not Detected Coronavirus HKU1 (PCR) Not Detected Coronavirus 229E (PCR) Not Detected SARS-CoV-2 (PCR) Not Detected Coronavirus NL63 (PCR) Not Detected Human Metapneumovir PCR Not Detected Influenza Type A (PCR) Not Detected Influenza Type B (PCR) Not Detected M. pneumoniae (PCR) Not Detected Parainfluenza 1 (PCR) Not Detected Parainfluenza 2 (PCR) Not Detected Parainfluenza 3 (PCR) Not Detected Parainfluenza 4 (PCR) Not Detected RSV (PCR) Not Detected Entero/Rhino (PCR) Not Detected 05/05/24 05/05/24 05/06/24 18:45 22:52 00:28 WBC RBC Hgb Hct MCV MCH MCHC RDW Std Deviation RDW Coeff of [place] Plt Count MPV Immature Gran % (Auto) Neut % (Auto) Lymph % (Auto) [place] % (Auto) Eos % (Auto) Baso % (Auto) Neut # (Auto) Lymph # (Auto) [place] # (Auto) Eos # (Auto) Baso # (Auto) Immature Gran # (Auto) Heparin Anti-Xa, Unfract 0.26 L Sodium Potassium Chloride Carbon Dioxide Anion Gap BUN Creatinine Est Cr Clr Drug Dosing eGFR BUN/Creatinine Ratio Glucose Lactate Calcium Magnesium 1.9 Total Bilirubin AST ALT Alkaline Phosphatase Troponin I High Sens 16.7 D 40.0 H D Total Protein Albumin Globulin Albumin/Globulin Ratio Lipase Procalcitonin Urine Color Urine Appearance Urine pH Ur Specific [place] Urine Protein Urine Glucose (UA) Urine Ketones Urine Blood Urine Nitrite Urine Bilirubin Urine Urobilinogen Ur Leukocyte Esterase Urine WBC (Auto) Urine RBC (Auto) U Hyaline Cast (Auto) U Epithel Cells (Auto) Urine Bacteria (Auto) Adenovirus (PCR) Anaplasma Smear A. phagocytophilum DNA Babesia Smear Babesia microti DNA PCR B. pertussis DNA (PCR) B.parapertussis DNA PCR Lyme Disease Screen Lyme Tier 2 IgG Confirm Lyme Tier 2 IgM Confirm C. pneumoniae DNA (PCR) Coronavirus OC43 (PCR) Coronavirus HKU1 (PCR) Coronavirus 229E (PCR) SARS-CoV-2 (PCR) Coronavirus NL63 (PCR) Human Metapneumovir PCR Influenza Type A (PCR) Influenza Type B (PCR) M. pneumoniae (PCR) Parainfluenza 1 (PCR) Parainfluenza 2 (PCR) Parainfluenza 3 (PCR) Parainfluenza 4 (PCR) RSV (PCR) Entero/Rhino (PCR) 05/06/24 06:26 WBC 21.80 H RBC 3.69 L Hgb 11.9 L Hct 34.1 L MCV 92.4 MCH 32.2 MCHC 34.9 RDW Std Deviation 45.0 RDW Coeff of Gary 13.2 Plt Count 207 MPV 10.4 Immature Gran % (Auto) Neut % (Auto) Lymph % (Auto) [place] % (Auto) Eos % (Auto) Baso % (Auto) Neut # (Auto) Lymph # (Auto) [place] # (Auto) Eos # (Auto) Baso # (Auto) Immature Gran # (Auto) Heparin Anti-Xa, Unfract 0.38 Sodium 142 Potassium 4.1 Chloride 110 H Carbon Dioxide 25 Anion Gap 7 BUN 15 Creatinine 1.01 Est Cr Clr Drug Dosing 71.3 eGFR 80.50 BUN/Creatinine Ratio 14.9 Glucose 108 H Lactate Calcium 8.6 Magnesium 2.1 Total Bilirubin 0.6 AST 18 ALT 29 Alkaline Phosphatase 86 Troponin I High Sens Total Protein 5.8 L Albumin 2.9 L Globulin 2.9 Albumin/Globulin Ratio 1.0 Lipase Procalcitonin Urine Color Urine Appearance Urine pH Ur Specific [place] Urine Protein Urine Glucose (UA) Urine Ketones Urine Blood Urine Nitrite Urine Bilirubin Urine Urobilinogen Ur Leukocyte Esterase Urine WBC (Auto) Urine RBC (Auto) U Hyaline Cast (Auto) U Epithel Cells (Auto) Urine Bacteria (Auto) Adenovirus (PCR) Anaplasma Smear A. phagocytophilum DNA Babesia Smear Babesia microti DNA PCR B. pertussis DNA (PCR) B.parapertussis DNA PCR Lyme Disease Screen Lyme Tier 2 IgG Confirm Lyme Tier 2 IgM Confirm C. pneumoniae DNA (PCR) Coronavirus OC43 (PCR) Coronavirus HKU1 (PCR) Coronavirus 229E (PCR) SARS-CoV-2 (PCR) Coronavirus NL63 (PCR) Human Metapneumovir PCR Influenza Type A (PCR) Influenza Type B (PCR) M. pneumoniae (PCR) Parainfluenza 1 (PCR) Parainfluenza 2 (PCR) Parainfluenza 3 (PCR) Parainfluenza 4 (PCR) RSV (PCR) Entero/Rhino (PCR) Diagnostic Findings Abdomen/Pelvis CT 05/05/24 13:39 EXAMINATION: Abdomen and pelvis CT with CLINICAL HISTORY: Back pain, abdominal pain PRIORS: None TECHNIQUE: Contiguous axial images were obtained through the abdomen and pelvis with the use of intravenous contrast. Sagittal and coronal reformations are supplied. FINDINGS: Mild atelectasis in the lung bases. The liver is enlarged measuring 19.5 cm. The gallbladder, pancreas, spleen, adrenals, aorta and IVC are morphologically unremarkable. Moderate atherosclerotic disease of the abdominal aorta. A large nonobstructing left renal calculus is present in the calyces, measuring up to 11 mm. Small right renal cyst is present. No obstructing renal calculus. Enhancement of the kidneys is patchy and heterogeneous, right greater than left. No perinephric stranding. Urinary bladder distends normally. Prostate is moderately enlarged. No retroperitoneal adenopathy. A large amount of formed stool is present throughout the colon. No dilated loops of bowel or bowel obstruction. No ascites or extraluminal gas. Appendix is a normal appearance. No inguinal adenopathy. In bone windows, moderate osseous demineralization noted. Moderate to advanced degenerative change at L5-S1. No high-grade compression fracture. Very subtle compression deformity of the T12 vertebral body of less than 10% with the nonacute appearance. No retropulsed fragments. IMPRESSION: 1. Subtle bilateral heterogeneous striated nephrograms, right greater than left, favoring mild bilateral pyelonephritis with no perinephric stranding or acute complication at this time. Please correlate with urinalysis as appropriate. 2. Left nonobstructing renal calculus measuring 11.5 mm. 3. Moderately enlarged prostate with no urinary bladder wall thickening or perivesicular enhancement. 4. Large amount of formed stool throughout the colon with no dilated loops of bowel. 5. Hepatomegaly. 6. Osseous demineralization with degenerative change at L5-S1. Subtle compression deformity of the T12 vertebral body with a nonacute appearance and no retropulsed fragments. ACT 112: Positive. There are findings on this examination that require communication between the performing entity and the patient following Patient Test Result Information Act ([place] ACT 112) guidelines. Electronically signed by Kayli Mo 05-05-2024 3:00 PM Chest X-Ray 05/05/24 13:40 EXAM: X-ray chest one-view portable CLINICAL HISTORY: Dyspnea PRIORS: None TECHNIQUE: Frontal view chest FINDINGS: The chest is well-expanded. No airspace consolidation, effusion or congestive changes. Heart size is top normal. No pneumothorax. Trachea is patent. Osseous structures demonstrate no acute abnormality. No radiopaque foreign body. IMPRESSION: No plain film evidence of an acute cardiopulmonary process. Electronically signed by Kayli Mo 05-05-2024 2:22 PM Medications Administered Current Inpatient Medications Acetaminophen (Acetaminophen 325 Mg Tab) 650 mg PO Q4H PRN PRN Reason: Pain or Fever Stop: 06/04/24 17:41 Last Admin: 05/06/24 09:01 Dose: 650 mg Atorvastatin Calcium (Atorvastatin 10 Mg Tab) 10 mg PO HS [facility]IM[facility] Stop: 06/04/24 20:59 Last Admin: 05/05/24 20:09 Dose: 10 mg Docusate Sodium (Docusate Sodium 100 Mg Cap) 100 mg PO BID [facility] Stop: 06/04/24 20:59 Last Admin: 05/06/24 08:56 Dose: 100 mg Doxycycline Hyclate (Doxycycline Hyclate 100 Mg Cap) 100 mg PO BID [facility] Stop: 05/15/24 20:59 Last Admin: 05/06/24 08:57 Dose: 100 mg Folic Acid (Folic Acid 400 Mcg Tab) 400 mcg PO QAM [facility] Stop: 06/05/24 08:59 Last Admin: 05/06/24 08:56 Dose: 400 mcg Heparin Sodium/Dextrose (Heparin Sodium/Dextrose) 25,000 units in 500 mls @ 29 mls/hr IV .[id number] [facility]; Protocol Stop: 06/04/24 15:59 Last Titration: 05/06/24 09:11 Dose: 1,450 units/hr, 29 mls/hr Ceftriaxone Sodium (Rocephin) 2,000 mg in 50 mls @ 100 mls/hr IV Q24H [facility] Stop: 05/13/24 13:59 Potassium Chloride/Sodium Chloride (Normal Saline W/20 Meq Kcl) 20 meq in 1,000 mls @ 100 mls/hr IV .Q10H ONE Stop: 05/06/24 10:44 Last Admin: 05/06/24 00:47 Dose: 100 mls/hr Metoprolol Tartrate (Metoprolol Tartrate 1 Mg/Ml Vial) 5 mg IV Q6 PRN PRN Reason: Tachycardia HR>110 Stop: 06/04/24 17:41 Last Admin: 05/06/24 09:22 Dose: 5 mg Metoprolol Tartrate (Metoprolol Tartrate 25 Mg Tab) 25 mg PO Q8H [facility] Stop: 06/04/24 20:59 Last Admin: 05/06/24 05:44 Dose: 25 mg Multivitamins (Multivitamin Tab) 1 tab PO DAILY [facility] Stop: 06/05/24 08:59 Last Admin: 05/06/24 08:57 Dose: 1 tab Ondansetron HCl (Ondansetron Inj 2 Mg/Ml 2 Ml Vial) 4 mg IV Q6H PRN PRN Reason: Nausea Stop: 06/04/24 17:41 Pantoprazole Sodium (Pantoprazole 40 Mg Tab) 40 mg PO DAILY [facility] Stop: 06/05/24 08:59 Last Admin: 05/06/24 08:57 Dose: 40 mg Polyethylene Glycol (Polyethylene (Miralax) 17 Gm Pack) 17 gm PO DAILY PRN PRN Reason: Constipation Stop: 06/04/24 17:41 Sennosides (Senna 8.6 Mg Tab) 17.2 mg PO HS [facility] Stop: 06/04/24 20:59 Last Admin: 05/05/24 20:08 Dose: 17.2 mg Thiamine HCl (Thiamine Hcl 100 Mg Tab) 100 mg PO QAM [facility] Stop: 06/05/24 08:59 Last Admin: 05/06/24 08:56 Dose: 100 mg (5) Hyperlipidemia Hyperlipidemia type: mixed hyperlipidemia Qualified Code(s): E78.2 - Mixed hyperlipidemia (6) GERD (gastroesophageal reflux disease) Esophagitis presence: without esophagitis Qualified Code(s): K21.9 - Gastro- esophageal reflux disease without esophagitis
--- NOTE | 2024-05-06 10:10 | Urology Consultation ---
Date of Consultation May 06, 2024 Assessment & Plan (1) Pyelonephritis: (2) Nephrolithiasis: (3) Sepsis: 68 yo/M admitted for sepsis in the setting of Lyme disease and pyelonephritis. Patient afebrile, tachycardic, normotensive. Lab work reviewedcreatinine 1.01, WBC downtrending (21.8), hemoglobin 11.9. Urinalysis on arrival was not suspicious for infection, no urine culture pending. Blood cultures pending. Continue broad-spectrum antibiotics and narrow per sensitivity data when available. He is on Doxycycline for Lyme disease. CT reviewed and discussedleft nonobstructing calculus, no hydronephrosis, no obstructing stones visualized. Subtle bilateral heterogeneous striated nephrograms, right greater than left, favoring mild bilateral pyelonephritis. Discussed possible bilateral pyelonephritis, though UA was not suggestive of infection. Prostate is moderately enlarged on CT. Reports he is voiding spontaneously without difficulty at this timecontinue to monitor, recommend check a PVR today. No acute intervention at this time, plan to continue with antibiotics. Discussed outpatient follow-up with our service to discuss stone management. will sign off, recall as needed. History of Present Illness Reason for Consultation: Acute Pyelonephritis Requesting Physician: Dr. Vo Attending Physician: Marcia Packer MD History of Present Illness This is a 68-year-old male with past medical history of GERD, melanoma, and allergic rhinitis who presented to the emergency department on 05/05/2024 for evaluation of chills and low back pain. He reported ill feelings since Thanksgiving. He completed a Z-Lazaro and prednisone taper without improvement. He reported worsening low back pain and fever/chills prompting ED evaluation. On arrival he was afebrile and hypertensive. He became tachycardic and febrile in the emergency department. Developed Atrial flutter with RVR. Tmax 39.3. Lab work showed WBC 27.39, hemoglobin 13.3, sodium 135, creatinine 1.16, lactate 3.3. Urinalysis showed 2+ protein, otherwise unremarkable. Lyme disease screen positive, IgG and IgM. Viral panel otherwise negative. He was treated with IV fluids, ceftriaxone and metoprolol in the ED. Patient was admitted to the hospital medicine service for sepsis criteria in setting of Lyme disease and suspected pyelonephritis. Urology is consulted for acute pyelonephritis. Workup included CT abdomen pelvis which showed enhancement of the right kidneys is patchy and heterogeneous, right greater than left. No significant perinephric stranding. Enlarged nonobstructing left renal calculus noted. No obstructing stones or hydronephrosis. Urinary bladder distended, prostate is moderately enlarged. Blood cultures are pending. He is currently on ceftriaxone and doxycycline. Lab work today reviewedcreatinine 1.01, WBC 21.8, hemoglobin 11.9. Patient seen and examined at bedside this morning. Reports feeling better since arrival. No fever or chills overnight. Continues to have some low back discomfort. Voiding spontaneously without difficulty at present. Denies bothersome LUTS at baseline. However, he reports that for 2 weeks prior to arrival he was having increased urinary symptoms/difficulty including significant nocturia as well as some discomfort with voiding. Reports that he was having difficulty standing to void due to leg weakness/discomfort. No hematuria. No prior urology evaluations. No prior history of stones. Allergies Allergy/AdvReac Type Severity Reaction Status Date / Time No Known Allergies Allergy Unverified 10/05/23 09:01 Home Medications Medication Instructions Recorded Confirmed Type atorvastatin 10 mg tablet 10 mg PO HS 11/05/19 05/05/24 History glucosamine sulf dipot 1 cap PO DAILY 11/05/19 05/05/24 History chlr,msm,chond 550 mg-C 30 mg-omair 1 mg capsule (Glucosamine Chondroitin) multivitamin 1 tab PO DAILY 11/05/19 05/05/24 History omega 5-bnc-pta-fish oil 1,000 mg 1 cap PO DAILY 11/05/19 05/05/24 History (120 mg-180 mg) capsule (Fish Oil) omeprazole 40 mg capsule,delayed 40 mg PO DAILY 04/22/21 05/05/24 History release sodium hyaluronate 1 tab PO DAILY 05/05/24 05/05/24 History Patient History Medical History Family history of coronary artery disease GERD (gastroesophageal reflux disease) Melanoma s/p excision from face BCC (basal cell carcinoma of skin) removal from ear Environmental allergies History of asthma as child Surgical History History of arthroscopy RT KNEE Hx of vasectomy History of colonoscopy [place] teeth removed Family History Other No significant family history Social History Smoking Status: Never smoker Second Hand Exposure: Yes ( A CHILD); Do You Dip or Chew Tobacco: No; Hx Alcohol Use: Yes Alcohol type: beer, wine and hard liquor Alcohol Intake Frequency: 4 or More x per/Week Hx Substance Use: No Preferred Language: Syrian Communication Ability: Effective Supervisor White Sugar Required: No Beliefs That Will Affect Care: None Current Living Situation: Spouse Other Information That Helps Us Care for You: No Feels Safe at Home: Yes Safety Concerns: Feels Safe At This Time Assistive Devices: Glasses Review of Systems Review of Systems: All systems reviewed & are unremarkable except as noted in HPI & below Physical Exam Constitutional: well developed and well nourished; no acute distress Respiratory: normal respiratory effort; no respiratory distress and no labored breathing Gastrointestinal (Abdomen): Inspection/Auscultation: abdomen normal to inspection Musculoskeletal: Head/Neck/Chest: normocephalic Neurologic: moves all extremities and awake Psychiatric: Orientation: alert and oriented x 3 Results & Data Vital Signs (Past 12 Hours) Vital Signs Temp Pulse Pulse Resp BP BP Pulse Ox 05/06/24 10:05 120 H 122/80 05/06/24 10:01 120 H 18 122/80 95 05/06/24 09:22 132 H 134/69 05/06/24 07:15 36.7 C 88 19 134/69 98 05/06/24 03:35 36.9 C 86 18 114/74 94 05/06/24 01:54 112 H 118/73 05/05/24 23:00 116 H 126/86 05/05/24 22:45 116 H 132/88 05/05/24 22:27 37.6 C H 116 H 18 132/88 99 O2 Del Method 05/06/24 10:05 05/06/24 10:01 Room Air 05/06/24 09:22 05/06/24 07:15 Room Air 05/06/24 03:35 Room Air 05/06/24 01:54 05/05/24 23:00 05/05/24 22:45 05/05/24 22:27 Room Air PG Care Time/CCT Total # of Minutes Spent Total Time Spent with Patient: Total time spent is greater than 50% in coordination of care (as documented) at patient's floor/unit and/or counseling patient: Coding Level of Care Code 66860 INT INP/OBS CARE 2/55MIN Diagnoses Pyelonephritis N12 Nephrolithiasis N20.0 Sepsis A41.9
--- NOTE | 2024-05-06 12:19 | Cardiology Consultation ---
Date of Consultation May 06, 2024 Assessment & Plan (1) Atrial flutter with rapid ventricular response: -Ventricular response still elevated despite low-dose metoprolol tartrate. -Would increase metoprolol to tartrate dose. -Consider diltiazem drip. -Consider intravenous diltiazem. -May eventually need a DOMINIC directed cardioversion. (2) Lyme disease: -Management per hospitalist team. -May be responsible for the atrial dysrhythmia. (3) Hyperlipidemia: -Continue atorvastatin. History of Present Illness Attending Physician: Marcia Packer MD History of Present Illness Mr. Appiah is a 68-year-old male admitted yesterday with Lyme disease, pyelonephritis, and atrial flutter with a rapid ventricular response. This consultation was ordered to assist in his cardiac management. Of note, the patient is well-known to me from the outpatient setting. The patient was in his usual state of health until approximately 1 to 2 weeks ago. He began to note symptoms consistent with an upper respiratory syndrome. He took a Z-Lazaro without change in his symptoms. Over the last several days, he has noted significant myalgias, low-grade fever, and low back pain. He presented to the emergency room yesterday with the above listed diagnoses. The patient has never known of an atrial dysrhythmia. He specifically denies palpitations at this time. He was started on intravenous heparin at the time of admission. He has never known of any cardiac event. He did have a normal stress echocardiogram back in October of this year. The patient is vigorous on a daily basis caring for his home and property. He also exercises routinely. He has never experienced exertional chest pain or limiting dyspnea. He further denies syncope, presyncope, PND, orthopnea, lower extremity edema, and claudication. Currently, patient is resting comfortably in bed and without complaints. Past medical and surgical history 1. Hypercholesterolemia 2. GERD 3. Asthma 4. Melanoma 5. Basal cell skin carcinoma 6. Squamous cell skin carcinoma 7. Allergic rhinitis 8. Vasectomy 9. 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 She did have a CVA. A sister was murdered in her late 20s. His other sisters are alive and well Review of systems A 10 point review of systems undertaken and negative except for that described above. Allergies Allergy/AdvReac Type Severity Reaction Status Date / Time No Known Allergies Allergy Unverified 10/05/23 09:01 Home Medications Medication Instructions Recorded Confirmed Type atorvastatin 10 mg tablet 10 mg PO HS 11/05/19 05/05/24 History glucosamine sulf dipot 1 cap PO DAILY 11/05/19 05/05/24 History chlr,msm,chond 550 mg-C 30 mg-omari 1 mg capsule (Glucosamine Chondroitin) multivitamin 1 tab PO DAILY 11/05/19 05/05/24 History omega 7-gcd-qis-fish oil 1,000 mg 1 cap PO DAILY 11/05/19 05/05/24 History (120 mg-180 mg) capsule (Fish Oil) omeprazole 40 mg capsule,delayed 40 mg PO DAILY 04/22/21 05/05/24 History release sodium hyaluronate 1 tab PO DAILY 05/05/24 05/05/24 History Patient History Medical History Family history of coronary artery disease GERD (gastroesophageal reflux disease) Melanoma s/p excision from face BCC (basal cell carcinoma of skin) removal from ear Environmental allergies History of asthma as child Surgical History History of arthroscopy RT KNEE Hx of vasectomy History of colonoscopy [place] teeth removed Family History Other No significant family history Social History Smoking Status: Never smoker Second Hand Exposure: Yes ( A CHILD); Do You Dip or Chew Tobacco: No; Hx Alcohol Use: Yes Alcohol type: beer, wine and hard liquor Alcohol Intake Frequency: 4 or More x per/Week Hx Substance Use: No Preferred Language: Montserratian Communication Ability: Effective Shank Taper Required: No Beliefs That Will Affect Care: None Current Living Situation: Spouse Other Information That Helps Us Care for You: No Feels Safe at Home: Yes Safety Concerns: Feels Safe At This Time Assistive Devices: None Physical Exam Physical Exam: In general this is a well-developed well-nourished white male in no acute distress. HEENT exam is negative. Neck is supple with full carotid upstrokes. There are no carotid bruits. Jugular venous pressure is flat at 90. There is no thyromegaly. Cardiovascular exam reveals a regular rhythm with a normal S1 and S2. No S3, S4, or murmurs are noted. Lungs are clear without rales, rhonchi, or wheezes. Abdomen is soft and nontender without bruits. Extremities reveal intact radial artery and posterior tibial pulses bilaterally. There is no peripheral edema. Results & Data Vital Signs (Past 12 Hours) Vital Signs Temp Pulse Pulse Resp BP BP Pulse Ox 05/06/24 10:05 120 H 122/80 05/06/24 10:01 120 H 18 122/80 95 05/06/24 09:22 132 H 134/69 05/06/24 07:15 36.7 C 88 19 134/69 98 05/06/24 03:35 36.9 C 86 18 114/74 94 05/06/24 01:54 112 H 118/73 O2 Del Method 05/06/24 10:05 05/06/24 10:01 Room Air 05/06/24 09:22 05/06/24 07:15 Room Air 05/06/24 03:35 Room Air 05/06/24 01:54 Laboratory Results Initial troponin was normal at 16.7 with a follow-up value of 40. Diagnostic Findings EKG notes atrial flutter with a rapid ventricular response. PG Care Time/CCT Total # of Minutes Spent Total Time Spent with Patient: Total time spent is greater than 50% in coordination of care (as documented) at patient's floor/unit and/or counseling patient: Coding Level of Care Code 08037 OFFICE CONSULT LVL M Diagnoses Atrial flutter with rapid ventricular response I48.92 Lyme disease A69.20 Mixed hyperlipidemia E78.2 Hyperlipidemia type: mixed hyperlipidemia (3) Hyperlipidemia Hyperlipidemia type: mixed hyperlipidemia Qualified Code(s): E78.2 - Mixed hyperlipidemia
[2024-05-06] MEDS: cefTRIAXone SODIUM 2,000 MG/50 ML BAG IV SCH (13:28)
--- NOTE | 2024-05-06 16:41 | XCELERA ---
[id number]
[2024-05-07] MEDS ORDERED: oxyCODONE HCL IR 5 MG TAB (IMMEDIATE RELEASE) PO PRN (01:18)
--- NOTE | 2024-05-07 01:19 | Communication Note ---
Date of Service: May 07, 2024
[2024-05-07] MEDS: oxyCODONE HCL IR 5 MG TAB (IMMEDIATE RELEASE) ONE (01:32)
[2024-05-07] MEDS: oxyCODONE HCL IR 5 MG TAB (IMMEDIATE RELEASE) PO STA (01:36)
--- NOTE | 2024-05-07 03:00 | CT Scan Report ---
EXAM: CT abd pelvis wo con CLINICAL HISTORY: New back pain, heparin. TECHNIQUE: Non-contrast CT of the abdomen and pelvis was performed, with the following protocol: axial images, and reconstructed coronal and sagittal images. One of the following dose reduction techniques was utilized for this exam: Automated exposure control, adjustment of the mA and/or kV according to patient size, and use of iterative reconstruction. COMPARISON: This examination is being compared with prior CT dated 05/05/2024 FINDINGS: Abdomen: Liver: Normal in size, shape, and density. No focal lesions, cysts, or masses were identified. Gallbladder and Biliary System: The gallbladder is normal in size and shape. No wall thickening, pericholecystic fluid, or gallstones were identified. Pancreas: Pancreatic head, body, and tail are visualized and appear normal in size and density. No pancreatic masses or calcifications were noted. Spleen: Normal in size, shape, and density. No splenic lesions or masses were identified. Kidneys and Adrenal Glands: Both kidneys are normal in size, shape, and position. Cortical thickness is within normal limits. A nonobstructing calculus is identified in the interpolar calyceal system of left kidney measuring 11 x 6 mm with Hounsfield unit of 1363. No evidence of calculus in right kidney No hydronephrosis seen bilaterally Mild bilateral perinephric fat study is identified Adrenal glands are unremarkable. Abdominal Aorta and Vessels: The abdominal aorta and major branches are patent without evidence of an aneurysms Mild atherosclerotic changes identified in the aorta and iliac arteries Pelvis: Urinary Bladder: Normal in contour and wall thickness. No intraluminal lesions. Prostate: Enlarged at the bladder base measuring [id number] 41mm with volume of 50 ml, with specks of calcifications Seminal Vesicles: Normal appearance without abnormal enlargement or mass. Multiple phleboliths seen in the pelvis Peritoneal and Retroperitoneal Structures: No free fluid or abnormal fluid collections were identified within the abdomen or pelvis. No lymphadenopathy was noted. Bowel: Significant fecal colonic content of the large bowel loops, and fecalization of the small bowel loops seen The visualized bowel loops are normal in caliber and appearance. No evidence of bowel obstruction or wall thickening. Possible few diverticula in the sigmoid descending colon Appendix is separately visualized and appears normal Lungs: Atelectatic bands are identified in both lungs lower lobe Prominent aortic valve is identified Bones and Soft Tissues: Pelvic bones and soft tissues are unremarkable. No fractures or abnormal masses were identified. Mild scoliosis identified in lumbar spine with convexity towards left side Mild reduced vertebral body height of T12 Reduced bone density IMPRESSION: 1. Left renal non obstructing calculus. Stable. 2. Interval stable mild bilateral perinephric fat stranding. Urinalysis is suggested. 3. The previously seen cysts in left kidney are not visualized in the current examination likely due to non contrast study 4. Prostatomegaly with specks of calcifications, interval stable 5. No evidence of acute appendicitis 6. Significant fecal colonic content of the large bowel loops, with no gross change 7. Possible few diverticula in the sigmoid descending colon, apparent also in prior examination. No evidence of inflammation. 8. Mild scoliosis identified in lumbar spine with convexity towards left side. This was also seen in prior examinations and stable. 9. Redemonstration of mild reduced vertebral body height of T12, This may be due to degenerative or due to osteopenia. 10. The prominent aortic valve is identified on the covered images. Electronically signed by Arben Corado 05-07-2024 02:59 AM
[2024-05-07 07:39] LABS: Basophils # (auto) 0.11 K/uL (0.00-0.20); Basophils % (auto) 0.6 %; Eosinophils # (auto) 0.17 K/uL (0.00-0.50); Eosinophils % (auto) 0.9 %; Hematocrit (blood only) 34.7 % (42.0-52.0); Hemoglobin 11.9 g/dl (14.0-18.0); Immature Granulocytes # (auto) 0.11 K/uL (0.01-0.20); Immature Granulocytes % (auto) 0.6 %; Lymphocytes % (auto) 12.4 %; Mean Corpuscular Hemoglobin 31.6 pg (25.0-34.0); Mean Corpuscular Hgb Conc 34.3 g/dL (32.0-36.0); Mean Platelet Volume 10.3 fL (9.4-12.4); Monocytes # (auto) 2.09 K/uL (0.11-0.59); Monocytes % (auto) 11.3 %; Neutrophils # (auto) 13.79 K/uL (1.40-6.50); Neutrophils % (auto) 74.2 %; Platelet Count 251 K/uL (130-400); RDW Coefficient of Variation 13.2 % (11.5-14.5); RDW Standard Deviation 44.9 fL (36.4-46.3); Red Blood Count 3.77 M/uL (4.70-6.10); White Blood Count 18.57 K/ul (4.8-10.8)
[2024-05-07 08:06] VITALS: RESP 17; TEMP 97.3; O2SAT 94
--- NOTE | 2024-05-07 09:28 | Discharge Summary ---
Discharge Summary Date of Service May 07, 2024 Principal Dx & Hospital Course #1 = Principal Diagnosis Notes For Next Care Provider Medication Changes From Visit Levaquin 750 mg p.o. daily for 10 days Doxycycline 100 mg twice daily for 21 days Ultram 50 mg every 8 hours as needed 10 tablets Admission HPI Per Admitting Provider Patient is a 68-year-old gentleman with history of hyperlipidemia who has been having the Lyme disease in the past, [place], patient initially started with 2 to 3 weeks of tiredness, at the suggestion of his friends, he completed a dose of Z-Lazaro and also steroid without any improvement, 3 days prior to this visit he started having bilateral lower flank pain and then because of overall condition he decided to check into the hospital. He was found to be positive for Lyme's disease both IgM and IgG, CT of the abdomen showed bilateral appearance of pyelonephritis with presence of an 11 mm kidney stone in the renal pelvis on the left side. He was flagged for sepsis and so patient was decided to be admitted, he had elevated troponin which lillie from 16 to 40, overnight his Tmax was 39.3. patient was seen by urology and no further recommendation was given in regard to any need for any acute intervention for the left sided renal pelvis stone, patient was also seen by cardiology, echocardiogram was reviewed which showed normal LV function. Patient's heart rate remained better controlled. Today we had a long conversation with patient, we spoke about options of continu ing oral treatment versus inpatient. I gave both options to him he chose to go home, this is understandable considering that none of the cultures showed any growth and we base our decision on the radiographic appearance of the kidneys. Patient will be placed on Levaquin 750 mg daily for total of 10 more days, in regard to Lyme's disease we plan for doxycycline 100 mg twice daily to be continued for total of 21 days. I also ordered some Ultram 50 mg 3 times daily as needed for patient's back discomfort. Patient was told to seek help in case of any fever or chills. Updated Medication List Medication Instructions Recorded Confirmed Type atorvastatin 10 mg tablet 10 mg PO HS 11/05/19 05/05/24 History glucosamine sulf dipot 1 cap PO DAILY 11/05/19 05/05/24 History chlr,msm,chond 550 mg-C 30 mg-omari 1 mg capsule (Glucosamine Chondroitin) multivitamin 1 tab PO DAILY 11/05/19 05/05/24 History omega 2-dog-wju-fish oil 1,000 mg 1 cap PO DAILY 11/05/19 05/05/24 History (120 mg-180 mg) capsule (Fish Oil) omeprazole 40 mg capsule,delayed 40 mg PO DAILY 04/22/21 05/05/24 History release sodium hyaluronate 1 tab PO DAILY 05/05/24 05/05/24 History doxycycline monohydrate 100 mg 100 mg PO BID 21 days #42 caps 05/07/24 Rx capsule levofloxacin 750 mg tablet 750 mg PO DAILY 10 days #10 tabs 05/07/24 Rx tramadol 50 mg tablet 50 mg PO TID PRN pain #10 tabs 05/07/24 Rx Hospital Stay Data Consultations 05/05/24 15:06 ED Decision to Admit Stat 05/05/24 17:39 Consult Cardiology Routine Consult Urology Routine Diagnostic Imagining Performed 05/05/24 13:39 CT abd pelvis IV con only Stat 05/07/24 01:18 CT Abd and Pelvis [CT abd pelvis wo con] Stat Pending Results Patient Have Any Pending Studies at Discharge: No Discharge Instructions Given to Patient (Per Discharging Provider) Patient to complete 21 days of doxycycline and 10 more days of oral Levaquin Total Time Total Time Spent Total Time Spent (In Minutes): More than 35-minute
--- NOTE | 2024-05-07 10:23 | Cardiology Progress Note ---
Date of Service May 07, 2024 Assessment & Plan (1) Atrial flutter with rapid ventricular response: Plan: -Ventricular response better controlled on metoprolol tartrate. -Would increase metoprolol tartrate to 50 mg twice daily. -Would convert heparin to Eliquis 5 Mg twice daily. -Okay for hospital discharge from a cardiac perspective. -May eventually need a cardioversion. (2) Lyme disease: Plan: -Management per hospitalist team. -May be responsible for the atrial dysrhythmia. (3) Hyperlipidemia: Plan: -Continue atorvastatin. Admission and Anticipated Discharge Date Admission Date: May 05, 2024 Subjective The patient is standing at the bedside complaining of low back muscle spasms. He has not experienced any palpitations. He is anxious for hospital discharge later today. His is at the bedside. Physical Exam Physical Exam: In general this is a well-developed well-nourished white male in no acute distress. HEENT exam is negative. Neck is supple with full carotid upstrokes. There are no carotid bruits. Jugular venous pressure is flat at 90. There is no thyromegaly. Cardiovascular exam reveals a regular rhythm with a normal S1 and S2. No S3, S4, or murmurs are noted. Lungs are clear without rales, rhonchi, or wheezes. Abdomen is soft and nontender without bruits. Extremities reveal intact radial artery and posterior tibial pulses bilaterally. There is no peripheral edema. Results & Data Vital Signs (Past 12 Hours) Vital Signs Temp Pulse Pulse Resp BP BP Pulse Ox 05/07/24 10:12 89 05/07/24 08:22 110 H 120/84 05/07/24 08:07 121 H 124/80 05/07/24 08:05 36.3 C L 118 H 17 124/80 94 05/07/24 05:55 88 05/07/24 02:26 37.0 C 92 H 16 132/91 95 05/06/24 23:07 37.5 C 100 H 18 129/85 97 O2 Del Method 05/07/24 10:12 05/07/24 08:22 05/07/24 08:07 05/07/24 08:05 Room Air 05/07/24 05:55 05/07/24 02:26 Room Air 05/06/24 23:07 Room Air Diagnostic Findings packaging sales notes atrial flutter with a controlled ventricular response of less than 100 bpm. Echocardiogram noted normal left ventricular systolic function without wall motion abnormalities. There is mild mitral regurgitation. PG Care Time/CCT Total # of Minutes Spent Total Time Spent with Patient: Total time spent is greater than 50% in coordination of care (as documented) at patient's floor/unit and/or counseling patient: Coding Level of Care Code 88876 SUB INP/OBS CARE 3/50MIN Diagnoses Atrial flutter with rapid ventricular response I48.92 Lyme disease A69.20 Mixed hyperlipidemia E78.2 Hyperlipidemia type: mixed hyperlipidemia (3) Hyperlipidemia Hyperlipidemia type: mixed hyperlipidemia Qualified Code(s): E78.2 - Mixed hyperlipidemia
[2024-05-07 14:23] VITALS: BP 122/80; PULSE 118
[2024-05-09 16:28] LABS: Babesia microti DNA Not Detected (Not Detected)
== END 2024-05-07 14:28 | disposition home or self-care (01) | DRG 872 ==
LOC: ED 13:07 → SUATTDRO 15:35 → 2S 15:35